=== PATIENT | male | born 1950 | race Caucasian/White ===

== ENCOUNTER 2017-08-23 02:28 | Emergency (ER) | payer MEDICARE ==
[~2017-08-23] VITALS: Ht 177.8 cm; Wt 88.5 kg
[2017-08-23] MEDS ORDERED: ATENOLOL50 MG PO (02:42)
[2017-08-23] MEDS ORDERED: AMLODIPINE BESYL5 MG PO (02:42)
== END 2017-08-23 03:36 | disposition left against medical advice (07) ==
LOC: ER 02:28
DX: K64.4 Residual hemorrhoidal skin tags (principal)

== ENCOUNTER 2017-11-08 13:26 | Day surgery (SDC) | payer MEDICARE, OTHER ==
[~2017-11-08] VITALS: Ht 177.8 cm; Wt 88.5 kg
[~2017-11-08 13:26] MED LIST: AMLODIPINE BESYL5 MG PO; ATENOLOL50 MG PO
[2017-11-08] MEDS ORDERED: ASPIRIN 81 MG CHEW TAB PO ONE ×2 (13:45→19:15)
[2017-11-08] MEDS ORDERED: KETOROLAC TROMETHAMINE 30 MG/ML VIAL IV STA (13:46)
[2017-11-08 13:47] LABS: BASOPHILS % 0.8 % (0.0-1.0); EOSINOPHILS # (AUTO) 0.3 (0.0-0.4); EOSINOPHILS % 6.4 % (0.0-6.0); HEMATOCRIT 45.1 % (38.2-49.6); HEMOGLOBIN 15.8 g/dL (14.0-18.0); LYMPHOCYTES # (AUTO) 1.5 (1.0-3.2); LYMPHOCYTES % 30.3 % (18.0-39.1); MEAN CORPUSCULAR VOLUME 88.4 fL (81-99); MONOCYTES # (AUTO) 0.4 (0.2-0.8); MONOCYTES % 8.9 % (4.4-11.3); NEUTROPHILS # (AUTO) 2.6 (2.1-6.9); NEUTROPHILS % 53.4 % (38.7-80.0); PLATELET COUNT 184 x10e3/uL (140-360)
[2017-11-08 13:56] LABS: INR 1.04; PROTHROMBIN TIME 12.8 seconds (11.9-14.5)
[2017-11-08 13:57] LABS: BILIRUBIN,URINE NEGATIVE (NEGATIVE); CLARITY,URINE CLEAR (CLEAR); COLOR,URINE YELLOW (YELLOW); KETONES,URINE NEGATIVE (NEGATIVE); LEUKOCYTE ESTERASE ,URINE NEGATIVE (NEGATIVE); NITRITE,URINE NEGATIVE (NEGATIVE); PARTIAL THROMBOPLASTIN TIME 27.8 seconds (23.8-35.5); PROTEIN,URINE DIPSTICK NEGATIVE (NEGATIVE); URINE UROBILINOGEN 0.2 mg/dL (0.2 - 1)
[2017-11-08 14:06] LABS: ALANINE AMINOTRANSFERASE 18 IU/L (0-55); ALBUMIN/GLOBULIN RATIO 1.1 (0.8-2.0); ALKALINE PHOSPHATASE 50 IU/L (40-150); ANION GAP 11.8 mmol/L (8-16); BLOOD UREA NITROGEN 10 mg/dL (7-26); BUN/CREATININE RATIO 9 (6-25); CALCIUM 9.7 mg/dL (8.4-10.2); CARBON DIOXIDE 27 mmol/L (22-29); CHLORIDE 106 mmol/L (98-107); CREATINE KINASE 154 IU/L (30-200); CREATININE, SERUM 1.17 mg/dL (0.72-1.25); EST GLOMERULAR FILTRATION RATE > 60 ML/MIN (60-); GLUCOSE 138 mg/dL (74-118); POTASSIUM 3.8 mmol/L (3.5-5.1); SODIUM 141 mmol/L (136-145)
[2017-11-08 14:07] LABS: EPITHELIAL CELLS,URINE RARE /LPF; WBC,URINE (MAN) 0-5 /HPF (0-5)
--- NOTE | 2017-11-08 15:37 | Diagnostic Imaging Report ---
PROCEDURE: A single AP view of the chest. COMPARISON: None. INDICATIONS: CHEST PAIN RIGHT TO LEFT SIDE FINDINGS: Lines/tubes: None. Lungs: The lungs are well inflated and grossly clear. There is no evidence of pneumonia or pulmonary edema. Pleura: There is no pleural effusion or pneumothorax. Heart and mediastinum: Mild prominence of the cardiac silhouette, which may be partly due to portable AP projection. Pulmonary vasculature is normal. Bones: No acute bony abnormality. IMPRESSION: 1. No acute cardiopulmonary abnormalities. David Gonzales M.D. Dictated by: David Gonzales M.D. on 11/08/2017 at 15:42 Electronically approved by: David Gonzales M.D. on 11/08/2017 at 15:42
[2017-11-08] MEDS ORDERED: NITROGLYCERIN 0.4 MG SUBL SL PRN (19:15)
[2017-11-09] MEDS ORDERED: TERAZOSIN HCL5 MG PO (00:39)
[2017-11-09] MEDS ORDERED: CRESTOR10 MG (00:39)
[2017-11-09] MEDS ORDERED: ONGLYZA2.5 MG (00:46)
[2017-11-09 02:21] LABS: CREATINE KINASE MB 33.7 ng/mL (0-5.0)
[2017-11-09] MEDS ORDERED: CLOPIDOGREL BISULFATE 75 MG TAB PO ONE (02:45)
[2017-11-09 05:09] LABS: CHOL/HDL RATIO 2.4 (3.9-4.7)
[2017-11-09] MEDS ORDERED: HEPARIN SOD (PORCINE) 5,000 UNIT/ML VIAL IV ONE (07:45)
[2017-11-09] MEDS ORDERED: HEPARIN 25,000U/0.45% NS 250ML 1,000 UNIT in SODIUM CHLORIDE 0.9% 250ML 0 ML IV SCH (07:45)
[2017-11-09 08:06] LABS: INR 1.11; PARTIAL THROMBOPLASTIN TIME 27.6 seconds (23.8-35.5); PROTHROMBIN TIME 13.5 seconds (11.9-14.5)
[2017-11-09] MEDS ORDERED: HEPARIN 25,000U/0.45% NS 250ML 250 ML ONE (08:23)
[2017-11-09 08:39] LABS: BASOPHILS % 0.7 % (0.0-1.0); EOSINOPHILS # (AUTO) 0.2 (0.0-0.4); HEMATOCRIT 43.2 % (38.2-49.6); HEMOGLOBIN 15.1 g/dL (14.0-18.0); LYMPHOCYTES # (AUTO) 1.1 (1.0-3.2); LYMPHOCYTES % 19.5 % (18.0-39.1); MEAN CORPUSCULAR HEMOGLOBIN 30.8 pg (28-32); MONOCYTES # (AUTO) 0.4 (0.2-0.8); MONOCYTES % 7.6 % (4.4-11.3); NEUTROPHILS # (AUTO) 3.8 (2.1-6.9); NEUTROPHILS % 67.8 % (38.7-80.0); PLATELET COUNT 180 x10e3/uL (140-360); RED BLOOD COUNT 4.91 x10e6/uL (4.3-5.7)
[2017-11-09 08:53] LABS: ALANINE AMINOTRANSFERASE 20 IU/L (0-55); ALBUMIN 3.6 g/dL (3.5-5.0); ALBUMIN/GLOBULIN RATIO 1.2 (0.8-2.0); ALKALINE PHOSPHATASE 41 IU/L (40-150); ANION GAP 13.8 mmol/L (8-16); BLOOD UREA NITROGEN 10 mg/dL (7-26); BUN/CREATININE RATIO 10 (6-25); CALCIUM 9.3 mg/dL (8.4-10.2); CARBON DIOXIDE 23 mmol/L (22-29); CHLORIDE 107 mmol/L (98-107); CREATININE, SERUM 1.04 mg/dL (0.72-1.25); EST GLOMERULAR FILTRATION RATE > 60 ML/MIN (60-); GLUCOSE 146 mg/dL (74-118); POTASSIUM 3.8 mmol/L (3.5-5.1); SODIUM 140 mmol/L (136-145)
[2017-11-09] MEDS ORDERED: CLOPIDOGREL BISULFATE 75 MG TAB PO SCH (09:00)
[2017-11-09] MEDS ORDERED: ASPIRIN 81 MG ENTERIC COATED PO SCH (09:00)
[2017-11-09] MEDS ORDERED: LIDOCAINE 5% PATCH TP SCH (09:00)
--- NOTE | 2017-11-09 09:30 | History and Physical ---
CHIEF COMPLAINT: Chest discomfort. HISTORY OF PRESENT ILLNESS: This 67-year-old white man presented to [facility] Emergency Room with sudden onset of retrosternal chest tightness. The patient states this chest discomfort was associated with numbness in his bilateral forearms as well as anxiety and diaphoresis. The patient denied any shortness of breath or nausea, though. In the emergency room, a 12-lead EKG did not reveal any acute ischemic changes, but it did reveal poor R-wave progression in the anterior leads. The patient's initial cardiac enzyme was normal, namely troponin I of 0.004. The subsequent troponin I's have steadily increased. The last troponin I at 7:50 this morning was 2.971. The patient states at this time he is chest pain-free. The emergency room did start intravenous heparin last night. The patient's complete blood count and comprehensive metabolic panel were unremarkable except he was found to have a BUN and creatinine of 10 and 1.17 respectively. The patient's LDL cholesterol in the emergency room was 51 mg per dL. REVIEW OF SYSTEMS GENERAL: Weight has been stable. No fever or chills, but he did have diaphoresis with the chest discomfort. HEENT: No headache. No visual changes. CARDIOVASCULAR: Chest pain as per HPI. GI: No nausea, vomiting, or constipation. : No UTI or BPH symptoms. NEUROMUSCULAR: The patient did complain of numbness and tingling in his bilateral upper extremities associated with chest discomfort. ALLERGIES: CODEINE. FAMILY HISTORY: No coronary artery disease in any family members. SOCIAL HISTORY: This man is and lives with his . He is retired. No tobacco or alcohol use. PAST MEDICAL HISTORY 1. Hypertensive heart disease. 2. Type-2 diabetes mellitus (recently diagnosed). 3. Hyperlipidemia. SURGICAL HISTORY: None. HOME MEDICATIONS 1. Amlodipine 5 mg daily. 2. Atenolol 100 mg daily. 3. Rosuvastatin 20 mg each bedtime. 4. Saxagliptin 2.5 mg daily. 5. Terazosin 5 mg daily. PHYSICAL EXAMINATION GENERAL: He is awake, alert and fully oriented, in no distress. Very pleasant on exam. He looks much younger than his stated age. VITAL SIGNS: Height is 5 feet 10 inches, weight 195 pounds. Blood pressure 140/80. Pulse 83. Respiratory rate is 18. Oxygen saturation is 95% on room air. Temperature is 98.0. INTEGUMENT: Warm and dry. No pallor, jaundice or diaphoresis. HEENT: Anicteric sclerae with moist mucous membranes. NECK: Supple. No evidence of jugular venous distention. CARDIOVASCULAR: Distant heart sounds. Regular rate and rhythm with an S4 gallop. LUNGS: No rales. No rhonchi or wheezing. ABDOMEN: Benign. Normal bowel sounds. EXTREMITIES: No edema or deformity. NEUROLOGIC: Intact. DIAGNOSES 1. Acute coronary syndrome. 2. Kjk-DG-gzarpfhw myocardial infarction. 3. Hyperlipidemia. 4. Hypertensive heart disease. PLAN 1. Follow troponin I levels. 2. Consult cardiology. 3. Continue intravenous heparin. 4. Patient most likely will undergo a left heart catheterization today. I spent 45 minutes in the care of this patient. Job#: [id number] LAZARO
[2017-11-09] MEDS ORDERED: ATENOLOL 50 MG TAB PO SCH (11:00)
[2017-11-09] MEDS ORDERED: AMLODIPINE BESYLATE 5 MG TAB PO SCH (11:00)
[2017-11-09 12:31] LABS: CREATINE KINASE MB 57.7 ng/mL (0-5.0)
[2017-11-09] MEDS ORDERED: DIPHENHYDRAMINE HCL INJ 50 MG/ML VIAL ONE (14:31)
[2017-11-09] MEDS ORDERED: FENTANYL CITRATE/PF 100MCG/2 ML INJ ONE (14:31)
[2017-11-09] MEDS ORDERED: MIDAZOLAM HCL 2 MG/2 ML VIAL ONE (14:31)
[2017-11-09] MEDS ORDERED: METHYLPREDNISOLONE SOD SUCC 125 MG/2ML VIAL ONE (14:31)
[2017-11-09] MEDS ORDERED: LIDOCAINE HCL 2% LOCAL 20 ML VIAL ONE (14:32)
[2017-11-09] MEDS ORDERED: IOPAMIDOL 370 MG/ML 200 ML INFUS..BTL INJ ONE (14:32)
[2017-11-09] MEDS ORDERED: HEPARIN SOD/SOD CHLORIDE 2,000 ML ONE (14:32)
[2017-11-09] MEDS ORDERED: SODIUM CHLORIDE 0.9% 1000ML 1,000 ML ONE (14:32)
[2017-11-09 16:10] VITALS: BP 121/83
[2017-11-09 16:25] VITALS: BP 119/80
[2017-11-09 16:40] VITALS: BP 115/77
--- NOTE | 2017-11-09 16:50 | Consultation ---
DATE OF CONSULTATION: November 09, 2017 CARDIOLOGY CONSULTATION REASON FOR CONSULTATION: Non-ST elevation myocardial infarction. HISTORY OF PRESENT ILLNESS: This is a 67-year-old man with a history of hypertension, hyperlipidemia and recent onset diabetes mellitus who presented to the emergency department with sudden onset chest pain. The patient reports chronic upper chest pain that is worse with certain movements and exertion over the last few months. Tuesday the patient was moving some shingles and plywood and developed substernal chest pressure associated with some diaphoresis, nausea and upper extremity numbness. Upon arrival to the emergency department, the patient was found to have normal electrocardiogram; however, no ST elevations were noted. The patient's initial troponin was negative, and then suddenly began to rise and was started on heparin infusion. The patient was taken to the excavation laborer where he was found to have multivessel coronary artery disease, and he was transported back to the intensive care unit for transfer for bypass surgery. He has no prior past cardiac history. He does not smoke cigarettes or use any illicit drugs. Currently, the patient is feeling well and denies any chest pain, shortness of breath, palpitations or syncopal symptoms. REVIEW OF SYSTEMS: A 12-point review of systems was conducted and is negative other than mentioned above in HPI. PAST MEDICAL HISTORY: Hypertension, recently diagnosed diabetes mellitus, hyperlipidemia. FAMILY HISTORY: No premature CAD or sudden cardiac . SOCIAL HISTORY: No illicit drug use, alcohol or tobacco use. ALLERGIES: CODEINE AND IODINE. MEDICATIONS: Please see medication reconciliation form. PAST SURGICAL HISTORY: None. PHYSICAL EXAMINATION VITAL SIGNS: Temperature 98, heart rate 80, respirations 16, blood pressure 127/82, oxygen saturation 96% on room air. GENERAL: He is a well-appearing, well-built male lying comfortably in bed. HEENT: Head is normocephalic and atraumatic. Eyes: Extraocular muscles intact. Conjunctivae are clear. NECK: No JVD. No bruits. CARDIOVASCULAR: Regular rate and rhythm. No murmurs. Normal S1 and S2. LUNGS: Clear to auscultation bilaterally with no wheezing and no rales. ABDOMEN: Soft, nontender and nondistended. Normoactive bowel sounds. EXTREMITIES: No cyanosis, clubbing or edema. Vascular: 2+ pulses. SKIN: Warm, dry and intact. NEUROLOGIC: No focal deficits noted. Cranial nerves grossly intact. PSYCHIATRIC: Normal mood and affect. LABORATORY DATA: All reviewed. Notable for white blood cell count of 5.5, hemoglobin 15.1, platelets 180,000, sodium 140, potassium 3.8, creatinine 1.04. Recent cardiac enzymes reveal a CK MB of 57.7, creatinine kinase is 591, troponin I is 3.826. LDL is 51. Chest x-ray showed no acute cardiopulmonary abnormalities. A 12-lead electrocardiogram shows normal sinus rhythm with poor R-wave progression. IMPRESSION AND PLAN 1. Non-ST elevation myocardial infarction. The patient presented with symptoms concerning for angina. He was found to have elevated cardiac enzymes. Coronary angiography today revealed significant multivessel coronary artery disease. The patient will be transferred for coronary artery bypass graft surgery. He will continue on heparin infusion in addition to aspirin, statin and beta blockers. A 2D echocardiogram has been ordered and I will review once completed. 2. Hypertension. Initiate home antihypertensive medications. 3. Hyperlipidemia. Continue statin medications. 4. Diabetes mellitus. Check hemoglobin A1c and treatment per primary team. Thank you for the consultation. Will follow along with you. Job#: [id number]
--- NOTE | 2017-11-09 16:52 | Operative Report ---
DATE OF PROCEDURE: November 09, 2017 PROCEDURES PERFORMED 1. Conscious sedation 30 minutes. 2. Selective coronary angiography x2. 3. Left heart catheterization. PREPROCEDURE DIAGNOSIS: Msi-PX-gsyeicoso myocardial infarction. POSTPROCEDURE DIAGNOSIS: Multivessel coronary artery disease. ESTIMATED BLOOD LOSS: 20 mL. SPECIMENS REMOVED: None. PROCEDURE DETAILS: After informed consent was obtained, the patient was brought to the cardiac catheterization laboratory in a fasting and nonsedated state. Bilateral groins were prepped and draped in the usual sterile fashion. Lidocaine 2% was infiltrated over the right anterior groin for local anesthesia. Using a micropuncture needle, the right common femoral artery was accessed using modified Seldinger technique and a 5-Ethiopian sheath was placed. Next, diagnostic coronary angiography was performed using a 5-Ethiopian JL-4 and 3DRC catheters. Next, left heart catheterization was performed using a modified angled pigtail catheter. Diagnostic imaging revealed significant multivessel coronary artery disease. The sheath was removed, and hemostasis was obtained via a Mynx device. The patient tolerated the procedure well with no immediate complications and transported back to his room in stable condition. PROCEDURAL FINDINGS 1. Left main coronary artery has a mild mid 20% stenosis. 2. The left anterior descending coronary artery is patent proximally and is 100% occluded after the takeoff of the 1st diagonal branch. Septal perforators provide collaterals to the right posterior descending coronary artery. 3. Left circumflex coronary artery provides 2 obtuse marginal vessels. Left circumflex has an 80% to 90% stenosis just after the takeoff of the 1st obtuse marginal. 4. The right coronary artery has a long diffusely 70% stenotic lesion throughout its mid to distal course. The distal RCA extending into the right posterior descending coronary artery has a 90% to 95% stenoses. 5. The left ventricular end-diastolic pressure is 18 mmHg with no aortic valve gradient present upon pullback. IMPRESSION AND PLAN: This is a 67-year-old man who presented with a [id number]-TA-fpdmmlvhr myocardial infarction and was found to have multivessel coronary artery disease. The patient will be transferred for aortocoronary bypass surgery. Job#: [id number] EV
[2017-11-09] MEDS ORDERED: SIMVASTATIN 20 MG TAB PO SCH (21:00)
[2017-11-10] MEDS ORDERED: SIMVASTATIN 40 MG TAB PO SCH (09:00)
[2017-11-10] MEDS ORDERED: TERAZOSIN HCL 5 MG CAP PO SCH (09:00)
--- NOTE | 2017-11-16 11:03 | Discharge Summary ---
NO DICTATION, LENGTH 3 SECONDS. ROB JAMES MD Job#: [id number]
--- NOTE | 2017-11-16 11:33 | Discharge Summary ---
ADMIT DIAGNOSES 1. Acute coronary syndrome. 2. Bzh-XN-gwhetswr myocardial infarction. 3. Hyperlipidemia. 4. Hypertensive heart disease. DISCHARGE DIAGNOSES 1. Status post left heart catheterization. 2. Multivessel coronary artery disease. 3. Non-ST elevated myocardial infarction. 4. Hyperlipidemia. 5. Hypertensive heart disease. 6. Acute systolic/diastolic congestive heart failure. HOSPITAL COURSE: This is a 67-year-old white man who was initially admitted to [facility] with diagnosis of acute coronary syndrome, namely non-ST elevated myocardial infarction. Patient's troponin-I did get as high as 3.826 during this hospitalization. Patient was seen by redye hand, Dr. Jaylen Carroll, who performed left heart catheterization. Patient was found to have multivessel coronary artery disease and thus, he was referred to [facility] for tentative coronary artery bypass grafting. During this hospital stay, the patient underwent a 2D echocardiogram which revealed left ventricular ejection fraction of 45-50% with impaired diastolic relaxation. Thus, the patient was diagnosed with systolic/diastolic congestive heart failure. Patient's condition on discharge was stable with a fair prognosis. DISCHARGE MEDICATIONS 1. Atenolol 100 mg daily. 2. Amlodipine 5 mg daily. 3. Aspirin 81 mg daily. 4. Simvastatin 10 mg at bedtime. 5. Terazosin 5 mg daily. 6. Intravenous heparin. FOLLOWUP INSTRUCTIONS: As previously stated, patient was transferred to [facility] for tentative coronary artery bypass grafting. ROB JAMES MD Job#: [id number] AKU cc:EMIR CARROLL DO
--- OUTSIDE RECORDS SUMMARY | 2018-01-05 00:02 | XMS REPORT | Continuity of Care Document ---
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 No 08/23/17 2:26am If yes, is advance directive on file with [facility]? No 08/23/17 2:26am If not on file with [facility] will patient provide a copy? No 08/23/17 2:26am Do you have a Directive to Physician? No 08/23/17 2:26am Do you have a Medical Power of Stone Cleaner? No 08/23/17 2:26am Do you have an out of hospital Do Not Resuscitate Order? No 08/23/17 2:26am Do you have any special needs we should be aware of? No 08/23/17 2:26am Do you have a support person here with you today? Yes 08/23/17 2:26am Did patient receive Notice of Privacy Practices? Yes 08/23/17 2:26am Did patient receive patient rights and responsibilities? Yes 08/23/17 2:26am Problems No problem information available. Medications Current Home Medications Medication Dose Units Route Directions Days Qty Instructions Start Date Amlodipine Besylate 5 Mg Tablet 5 Mg Oral Daily 30 Tab Atenolol 50 Mg Tablet 100 Mg Oral Daily Social History No social history information available. Hospital Discharge Instructions No hospital discharge instruction information available. Plan of Care Discharge Date 08/23/17 3:36am Disposition LEFT AFTER MEDICAL SCREENING Condition at Discharge Stable Forms Provided Work/School Excuse Prescriptions See Medication Section Functional Status No functional status information available. Allergies, Adverse Reactions, Alerts Allergen Type Severity Reaction Status Last Updated Codeine Allergy Unknown Active 08/23/17 Immunizations No immunization information available. Vital Signs Acute Vital Signs Vital Response Date/Time Height 5 ft 10 in 08/23/2017 2:35am Weight 195 lb 08/23/2017 2:35am Body Mass Index 28.0 kg/m^2 08/23/2017 2:35am Results No relevant diagnostic test, laboratory data and/or discharge summary information available. Procedures No procedure information available. Encounters Encounter Location Arrival/Admit Date Discharge/Depart Date Attending Provider Departed Emergency Room [facility] 08/23/17 2:28am 3:36am UVALDO GIPSON MD
--- OUTSIDE RECORDS SUMMARY | 2018-01-05 00:14 | XMS REPORT ---
Author Author [facility] Address Unknown Phone Unavailable Care Team Providers Care Brim Presser Name Role Phone JOHANA GALVAN Unavailable Unavailable RICKI BLAKES Unavailable Unavailable Payers Payer Name Policy Type Policy Number Effective Date Expiration Date Problems This patient has no known problems. Allergies, Adverse Reactions, Alerts This patient has no known allergies or adverse reactions. Medications This patient has no known medications. Results Test Description Test Time Test Comments Text Results Atomic Results Result Comments POCT-GLUCOSE METER 2017-11-18 12:33:00 POC-GLUCOSE METER (BEAKER) (test kbql=0746) 194 mg/dL 70-110 TESTED AT [place] [id number] [facility] [address] POCT-GLUCOSE [id number] 08:32:00* Test Item Value Reference Range Comments POC-GLUCOSE METER (BEAKER) (test ttpm=2902) 118 mg/dL 70-110 TESTED AT [address] [address] CALCIUM, [id number] 06:21:00* Test Item Value Reference Range Comments CALCIUM IONIZED (BEAKER) (test nxmh=946) 0.93 mmol/L 1.12-1.27 PH, BLOOD (BEAKER) (test pkzn=4042) 7.58 [id number] 05:22:00* Test Item Value Reference Range Comments PHOSPHORUS (BEAKER) (test fdbp=593) 3.2 mg/dL 2.3-4.7 [id number] 05:22:00* Test Item Value Reference Range Comments MAGNESIUM (BEAKER) (test nvgy=656) 2.0 mg/dL 1.6-2.6 BASIC METABOLIC [id number] 05:22:00* Test Item Value Reference Range Comments SODIUM (BEAKER) (test wpyt=457) 139 meq/L 136-145 POTASSIUM (BEAKER) (test ipyh=988) 3.6 meq/L 3.5-5.1 CHLORIDE (BEAKER) (test sxrz=547) 106 meq/L 98-107 CO2 (BEAKER) (test jspv=409) 26 meq/L 22-29 BLOOD UREA NITROGEN (BEAKER) (test qwhx=290) 10 mg/dL 7-21 CREATININE (BEAKER) (test kwxj=641) 0.96 mg/dL 0.57-1.25 GLUCOSE RANDOM (BEAKER) (test wgsl=953) 130 mg/dL 70-105 CALCIUM (BEAKER) (test wzkt=159) 9.0 mg/dL 8.4-10.2 EGFR (BEAKER) (test lcvf=7875) 78 mL/min/1.73 sq m ESTIMATED GFR IS NOT ACCURATE CREATININE CLEARANCE IN PREDICTING GLOMERULAR FILTRATION RATE. ESTIMATED GFR IS NOT APPLICABLE FOR DIALYSIS PATIENTS. CBC (HEMOGRAM ONLY)2017-11-18 05:07:00* Test Item Value Reference Range Comments WHITE BLOOD CELL COUNT (BEAKER) (test vnpq=251) 6.9 K/ L 3.5-10.5 RED BLOOD CELL COUNT (BEAKER) (test bdip=416) 3.78 M/ L 4.63-6.08 HEMOGLOBIN (BEAKER) (test ccin=475) 11.4 GM/DL 13.7-17.5 HEMATOCRIT (BEAKER) (test fgpa=648) 34.3 % 40.1-51.0 MEAN CORPUSCULAR VOLUME (BEAKER) (test csrx=141) 90.7 fL 79.0-92.2 MEAN CORPUSCULAR HEMOGLOBIN (BEAKER) (test tyto=281) 30.2 pg 25.7-32.2 MEAN CORPUSCULAR HEMOGLOBIN CONC (BEAKER) (test wpif=313) 33.2 GM/DL 32.3- 36.5 RED CELL DISTRIBUTION WIDTH (BEAKER) (test cwym=830) 12.4 % 11.6-14.4 PLATELET COUNT (BEAKER) (test qiuf=914) 188 K/CU MM 150-450 MEAN PLATELET VOLUME (BEAKER) (test ajic=981) 11.1 fL 9.4-12.4 NUCLEATED RED BLOOD CELLS (BEAKER) (test qdtc=425) 0 /100 WBC 0-0 POCT-GLUCOSE [id number] 21:18:00* Test Item Value Reference Range Comments POC-GLUCOSE METER (BEAKER) (test tefv=6601) 236 mg/dL 70-110 TESTED AT [address] [address] POCT-GLUCOSE [id number] 18:03:00* Test Item Value Reference Range Comments POC-GLUCOSE METER (BEAKER) (test sijf=9388) 186 mg/dL 70-110 TESTED AT [address] [address] POCT-GLUCOSE [id number] 12:35:00* Test Item Value Reference Range Comments POC-GLUCOSE METER (BEAKER) (test irsf=6229) 171 mg/dL 70-110 TESTED AT [address] [address] POCT-GLUCOSE [id number] 08:50:00* Test Item Value Reference Range Comments POC-GLUCOSE METER (BEAKER) (test qixr=9919) 113 mg/dL 70-110 TESTED AT [address] [address] CALCIUM, [id number] 06:21:00* Test Item Value Reference Range Comments CALCIUM IONIZED (BEAKER) (test gjzy=003) 1.07 mmol/L 1.12-1.27 PH, BLOOD (BEAKER) (test qoap=1377) 7.51 [id number] 05:02:00* Test Item Value Reference Range Comments PHOSPHORUS (BEAKER) (test bwsx=961) 2.8 mg/dL 2.3-4.7 [id number] 05:02:00* Test Item Value Reference Range Comments MAGNESIUM (BEAKER) (test emug=593) 2.1 mg/dL 1.6-2.6 BASIC METABOLIC [id number] 05:02:00* Test Item Value Reference Range Comments SODIUM (BEAKER) (test seae=870) 138 meq/L 136-145 POTASSIUM (BEAKER) (test pahm=663) 3.5 meq/L 3.5-5.1 CHLORIDE (BEAKER) (test zrds=992) 103 meq/L 98-107 CO2 (BEAKER) (test saac=943) 27 meq/L 22-29 BLOOD UREA NITROGEN (BEAKER) (test ntsv=086) 14 mg/dL 7-21 CREATININE (BEAKER) (test oxge=300) 1.00 mg/dL 0.57-1.25 GLUCOSE RANDOM (BEAKER) (test jphc=364) 141 mg/dL 70-105 CALCIUM (BEAKER) (test dgwc=225) 8.7 mg/dL 8.4-10.2 EGFR (BEAKER) (test xesl=0855) 74 mL/min/1.73 sq m ESTIMATED GFR IS NOT ACCURATE CREATININE CLEARANCE IN PREDICTING GLOMERULAR FILTRATION RATE. ESTIMATED GFR IS NOT APPLICABLE FOR DIALYSIS PATIENTS. CBC (HEMOGRAM ONLY)2017-11-17 04:36:00* Test Item Value Reference Range Comments WHITE BLOOD CELL COUNT (BEAKER) (test osth=468) 6.0 K/ L 3.5-10.5 RED BLOOD CELL COUNT (BEAKER) (test xzuc=015) 3.73 M/ L 4.63-6.08 HEMOGLOBIN (BEAKER) (test kuiy=750) 11.4 GM/DL 13.7-17.5 HEMATOCRIT (BEAKER) (test uehc=746) 33.8 % 40.1-51.0 MEAN CORPUSCULAR VOLUME (BEAKER) (test dapn=620) 90.6 fL 79.0-92.2 MEAN CORPUSCULAR HEMOGLOBIN (BEAKER) (test hali=234) 30.6 pg 25.7-32.2 MEAN CORPUSCULAR HEMOGLOBIN CONC (BEAKER) (test pdzc=256) 33.7 GM/DL 32.3- 36.5 RED CELL DISTRIBUTION WIDTH (BEAKER) (test toyx=073) 12.2 % 11.6-14.4 PLATELET COUNT (BEAKER) (test yttk=552) 167 K/CU MM 150-450 MEAN PLATELET VOLUME (BEAKER) (test tfko=531) 11.1 fL 9.4-12.4 NUCLEATED RED BLOOD CELLS (BEAKER) (test etln=585) 0 /100 WBC 0-0 CBC W/PLT COUNT & AUTO [id number] 04:36:00* Test Item Value Reference Range Comments WHITE BLOOD CELL COUNT (BEAKER) (test mgsp=558) 6.0 K/ L 3.5-10.5 RED BLOOD CELL COUNT (BEAKER) (test pspp=040) 3.73 M/ L 4.63-6.08 HEMOGLOBIN (BEAKER) (test pkmj=395) 11.4 GM/DL 13.7-17.5 HEMATOCRIT (BEAKER) (test hnsl=871) 33.8 % 40.1-51.0 MEAN CORPUSCULAR VOLUME (BEAKER) (test kpie=349) 90.6 fL 79.0-92.2 MEAN CORPUSCULAR HEMOGLOBIN (BEAKER) (test zzch=019) 30.6 pg 25.7-32.2 MEAN CORPUSCULAR HEMOGLOBIN CONC (BEAKER) (test jqsg=363) 33.7 GM/DL 32.3- 36.5 RED CELL DISTRIBUTION WIDTH (BEAKER) (test qidd=553) 12.2 % 11.6-14.4 PLATELET COUNT (BEAKER) (test ruqb=949) 167 K/CU MM 150-450 MEAN PLATELET VOLUME (BEAKER) (test fsvq=723) 11.1 fL 9.4-12.4 NUCLEATED RED BLOOD CELLS (BEAKER) (test sdng=770) 0 /100 WBC 0-0 NEUTROPHILS RELATIVE PERCENT (BEAKER) (test rvxa=481) 68 % LYMPHOCYTES RELATIVE PERCENT (BEAKER) (test sxuj=414) 15 % MONOCYTES RELATIVE PERCENT (BEAKER) (test gbkz=372) 11 % EOSINOPHILS RELATIVE PERCENT (BEAKER) (test rauj=439) 4 % BASOPHILS RELATIVE PERCENT (BEAKER) (test xwrv=550) 1 % NEUTROPHILS ABSOLUTE COUNT (BEAKER) (test mhgg=396) 4.12 K/ L 1.78-5.38 LYMPHOCYTES ABSOLUTE COUNT (BEAKER) (test exho=075) 0.93 K/ L 1.32-3.57 MONOCYTES ABSOLUTE COUNT (BEAKER) (test bnlu=943) 0.69 K/ L 0.30-0.82 EOSINOPHILS ABSOLUTE COUNT (BEAKER) (test abyz=508) 0.22 K/ L 0.04-0.54 BASOPHILS ABSOLUTE COUNT (BEAKER) (test gabx=661) 0.04 K/ L 0.01-0.08 IMMATURE GRANULOCYTES-RELATIVE PERCENT (BEAKER) (test jqgv=8683) 1 % 0-1 POCT-GLUCOSE [id number] 21:18:00* Test Item Value Reference Range Comments POC-GLUCOSE METER (BEAKER) (test opgo=1422) 182 mg/dL 70-110 TESTED AT [facility] [address] [facility] [address] POCT-GLUCOSE [id number] 17:26:00* Test Item Value Reference Range Comments POC-GLUCOSE METER (BEAKER) (test njqg=9518) 175 mg/dL 70-110 TESTED AT [place] [id number] [facility] [address] POCT-GLUCOSE [id number] 11:16:00* Test Item Value Reference Range Comments POC-GLUCOSE METER (BEAKER) (test yrga=6982) 101 mg/dL 70-110 TESTED AT [address] [address] POCT-GLUCOSE [id number] 08:09:00* Test Item Value Reference Range Comments POC-GLUCOSE METER (BEAKER) (test xwdw=2933) 84 mg/dL 70-110 TESTED AT [place] [id number] [facility] [address] CALCIUM, [id number] 07:17:00* Test Item Value Reference Range Comments CALCIUM IONIZED (BEAKER) (test zqzb=533) 0.94 mmol/L 1.12-1.27 PH, BLOOD (BEAKER) (test bsxv=6214) 7.47 [id number] 04:46:00* Test Item Value Reference Range Comments PHOSPHORUS (BEAKER) (test raks=881) 2.8 mg/dL 2.3-4.7 [id number] 04:46:00* Test Item Value Reference Range Comments MAGNESIUM (BEAKER) (test paoj=168) 2.2 mg/dL 1.6-2.6 BASIC METABOLIC [id number] 04:46:00* Test Item Value Reference Range Comments SODIUM (BEAKER) (test lxlm=714) 137 meq/L 136-145 POTASSIUM (BEAKER) (test zzcd=324) 3.6 meq/L 3.5-5.1 CHLORIDE (BEAKER) (test seus=405) 103 meq/L 98-107 CO2 (BEAKER) (test hscd=288) 28 meq/L 22-29 BLOOD UREA NITROGEN (BEAKER) (test iuze=559) 14 mg/dL 7-21 CREATININE (BEAKER) (test thpy=533) 0.87 mg/dL 0.57-1.25 GLUCOSE RANDOM (BEAKER) (test yfoi=637) 88 mg/dL 70-105 CALCIUM (BEAKER) (test ajno=165) 8.4 mg/dL 8.4-10.2 EGFR (BEAKER) (test tadt=9693) 87 mL/min/1.73 sq m ESTIMATED GFR IS NOT ACCURATE CREATININE CLEARANCE IN PREDICTING GLOMERULAR FILTRATION RATE. ESTIMATED GFR IS NOT APPLICABLE FOR DIALYSIS PATIENTS. CBC W/PLT COUNT & AUTO [id number] 04:34:00* Test Item Value Reference Range Comments WHITE BLOOD CELL COUNT (BEAKER) (test batu=535) 5.4 K/ L 3.5-10.5 RED BLOOD CELL COUNT (BEAKER) (test unss=785) 3.71 M/ L 4.63-6.08 HEMOGLOBIN (BEAKER) (test rgwf=220) 11.3 GM/DL 13.7-17.5 HEMATOCRIT (BEAKER) (test kjnj=632) 34.4 % 40.1-51.0 MEAN CORPUSCULAR VOLUME (BEAKER) (test tsiv=937) 92.7 fL 79.0-92.2 MEAN CORPUSCULAR HEMOGLOBIN (BEAKER) (test dlil=511) 30.5 pg 25.7-32.2 MEAN CORPUSCULAR HEMOGLOBIN CONC (BEAKER) (test zafq=539) 32.8 GM/DL 32.3- 36.5 RED CELL DISTRIBUTION WIDTH (BEAKER) (test xgfr=214) 12.3 % 11.6-14.4 PLATELET COUNT (BEAKER) (test nuch=696) 141 K/CU MM 150-450 MEAN PLATELET VOLUME (BEAKER) (test mrlp=910) 11.5 fL 9.4-12.4 NUCLEATED RED BLOOD CELLS (BEAKER) (test kpot=593) 0 /100 WBC 0-0 NEUTROPHILS RELATIVE PERCENT (BEAKER) (test zhcc=428) 64 % LYMPHOCYTES RELATIVE PERCENT (BEAKER) (test xdun=702) 18 % MONOCYTES RELATIVE PERCENT (BEAKER) (test htfe=626) 12 % EOSINOPHILS RELATIVE PERCENT (BEAKER) (test xptd=748) 5 % BASOPHILS RELATIVE PERCENT (BEAKER) (test ollq=765) 0 % NEUTROPHILS ABSOLUTE COUNT (BEAKER) (test agxm=461) 3.48 K/ L 1.78-5.38 LYMPHOCYTES ABSOLUTE COUNT (BEAKER) (test rgmt=900) 0.95 K/ L 1.32-3.57 MONOCYTES ABSOLUTE COUNT (BEAKER) (test sory=396) 0.67 K/ L 0.30-0.82 EOSINOPHILS ABSOLUTE COUNT (BEAKER) (test ddhp=922) 0.25 K/ L 0.04-0.54 BASOPHILS ABSOLUTE COUNT (BEAKER) (test rmvy=859) 0.02 K/ L 0.01-0.08 IMMATURE GRANULOCYTES-RELATIVE PERCENT (BEAKER) (test kbgq=7444) 1 % 0-1 CBC (HEMOGRAM ONLY)2017-11-16 04:33:00* Test Item Value Reference Range Comments WHITE BLOOD CELL COUNT (BEAKER) (test shde=887) 5.4 K/ L 3.5-10.5 RED BLOOD CELL COUNT (BEAKER) (test cxsw=722) 3.71 M/ L 4.63-6.08 HEMOGLOBIN (BEAKER) (test fkwz=521) 11.3 GM/DL 13.7-17.5 HEMATOCRIT (BEAKER) (test arux=289) 34.4 % 40.1-51.0 MEAN CORPUSCULAR VOLUME (BEAKER) (test rfok=825) 92.7 fL 79.0-92.2 MEAN CORPUSCULAR HEMOGLOBIN (BEAKER) (test aomw=236) 30.5 pg 25.7-32.2 MEAN CORPUSCULAR HEMOGLOBIN CONC (BEAKER) (test acfk=682) 32.8 GM/DL 32.3- 36.5 RED CELL DISTRIBUTION WIDTH (BEAKER) (test rmyw=440) 12.3 % 11.6-14.4 PLATELET COUNT (BEAKER) (test taav=092) 141 K/CU MM 150-450 MEAN PLATELET VOLUME (BEAKER) (test glqa=845) 11.5 fL 9.4-12.4 NUCLEATED RED BLOOD CELLS (BEAKER) (test akaz=713) 0 /100 WBC 0-0 POCT-GLUCOSE [id number] 21:19:00* Test Item Value Reference Range Comments POC-GLUCOSE METER (BEAKER) (test rpeg=7781) 173 mg/dL 70-110 TESTED AT [facility] [address] [facility] [address] POCT-GLUCOSE [id number] 18:05:00* Test Item Value Reference Range Comments POC-GLUCOSE METER (BEAKER) (test qhro=6233) 102 mg/dL 70-110 TESTED AT [facility] [address] [facility] [address] POCT-GLUCOSE [id number] 12:39:00* Test Item Value Reference Range Comments POC-GLUCOSE METER (BEAKER) (test gaah=8472) 171 mg/dL 70-110 TESTED AT [facility] [address] [facility] [address] RAD, CHEST, 1 VIEW, NON [id number] 08:05:00Reason for exam:->ptxShould this be performed at the bedside?->YesFINAL REPORT Chest one view INDICATION: Pneumothorax COMPARISON: 11/14/2017 IMPRESSION: Right jugular line and sheath been have removed. Median sternotomy changes are noted. Previously seen trace left apical pneumothorax is not visible on this exam. The enlarged cardiomediastinal silhouette is stable in size. Pulmonary edema appears regressed. Stable left mid and lower lung and right basilar opacities may reflect atelectasis. Pneumonitis should be excluded clinically. Chronic right clavicular fracture is noted. Signed: Rajiv Santoslaw[facility] Verified Date/Time: 11/15/2017 08:05:47 Reading Location: [facility] Radiology Reading Room -GLUCOSE [id number] 07:47:00* Test Item Value Reference Range Comments POC-GLUCOSE METER (BEAKER) (test ttdm=7607) 88 mg/dL 70-110 TESTED AT [facility] [address] [facility] [address] CALCIUM, [id number] 07:12:00* Test Item Value Reference Range Comments CALCIUM IONIZED (BEAKER) (test jcsg=134) 1.00 mmol/L 1.12-1.27 PH, BLOOD (BEAKER) (test szwy=6085) 7.47 [id number] 05:03:00* Test Item Value Reference Range Comments PHOSPHORUS (BEAKER) (test vnae=272) 2.3 mg/dL 2.3-4.7 BASIC METABOLIC [id number] 05:03:00* Test Item Value Reference Range Comments SODIUM (BEAKER) (test bojd=030) 137 meq/L 136-145 POTASSIUM (BEAKER) (test zhig=112) 3.4 meq/L 3.5-5.1 CHLORIDE (BEAKER) (test ubai=712) 104 meq/L 98-107 CO2 (BEAKER) (test teec=469) 29 meq/L 22-29 BLOOD UREA NITROGEN (BEAKER) (test uxqa=751) 18 mg/dL 7-21 CREATININE (BEAKER) (test xipi=341) 0.84 mg/dL 0.57-1.25 GLUCOSE RANDOM (BEAKER) (test cshn=126) 100 mg/dL 70-105 CALCIUM (BEAKER) (test caac=629) 8.2 mg/dL 8.4-10.2 EGFR (BEAKER) (test kola=8076) 91 mL/min/1.73 sq m ESTIMATED GFR IS NOT ACCURATE CREATININE CLEARANCE IN PREDICTING GLOMERULAR FILTRATION RATE. ESTIMATED GFR IS NOT APPLICABLE FOR DIALYSIS PATIENTS. CBC (HEMOGRAM ONLY)2017-11-15 04:50:00* Test Item Value Reference Range Comments WHITE BLOOD CELL COUNT (BEAKER) (test owwu=823) 6.1 K/ L 3.5-10.5 RED BLOOD CELL COUNT (BEAKER) (test fanm=023) 3.46 M/ L 4.63-6.08 HEMOGLOBIN (BEAKER) (test xfty=950) 10.5 GM/DL 13.7-17.5 HEMATOCRIT (BEAKER) (test fueu=012) 31.8 % 40.1-51.0 MEAN CORPUSCULAR VOLUME (BEAKER) (test hkio=877) 91.9 fL 79.0-92.2 MEAN CORPUSCULAR HEMOGLOBIN (BEAKER) (test fcyd=292) 30.3 pg 25.7-32.2 MEAN CORPUSCULAR HEMOGLOBIN CONC (BEAKER) (test kfhu=379) 33.0 GM/DL 32.3- 36.5 RED CELL DISTRIBUTION WIDTH (BEAKER) (test ceop=516) 12.0 % 11.6-14.4 PLATELET COUNT (BEAKER) (test gqrp=724) 120 K/CU MM 150-450 MEAN PLATELET VOLUME (BEAKER) (test knsb=425) 11.3 fL 9.4-12.4 NUCLEATED RED BLOOD CELLS (BEAKER) (test srjg=700) 0 /100 WBC 0-0 POCT-GLUCOSE [id number] 21:23:00* Test Item Value Reference Range Comments POC-GLUCOSE METER (BEAKER) (test phpl=8492) 178 mg/dL 70-110 TESTED AT [facility] [address] [facility] [address] POCT-GLUCOSE [id number] 16:53:00* Test Item Value Reference Range Comments POC-GLUCOSE METER (BEAKER) (test ctkr=2452) 137 mg/dL 70-110 TESTED AT [place] [id number] [facility] [address] RAD, CHEST, 1 VIEW, NON [id number] 12:11:00Reason for exam:->Chest Tube RemovalShould this be performed at the bedside?->YesFINAL REPORT Chest one view INDICATION: Chest tube removal COMPARISON: 11/14/2017 IMPRESSION: Chest tubes have been removed. Median sternotomy changes and a right jugular line and sheath are again seen. Trace residual left apical pneumothorax is stable. The enlarged cardiomediastinal silhouette is stable in size. Pulmonary edema is similar in appearance. Stable left mid and lower lung and basilar airspace opacities, atelectasis versus pneumonitis. Chronic right clavicular fracture is noted. Signed: Rajiv Santos Verified Date/Time: 11/14/2017 12:11:27 Reading Location: [facility] Radiology Reading Room Electronically signed by: RAJIV SANTOS M.D. on 2017 12:11 PM POCT-GLUCOSE [id number] 12:06:00* Test Item Value Reference Range Comments POC-GLUCOSE METER (BEAKER) (test zacl=1249) 166 mg/dL 70-110 TESTED AT [facility] [address] [facility] [address] POCT-GLUCOSE [id number] 08:45:00* Test Item Value Reference Range Comments POC-GLUCOSE METER (BEAKER) (test jsgz=4280) 133 mg/dL 70-110 TESTED AT [facility] [address] [facility] [address] RAD, CHEST, 1 VIEW, NON [id number] 06:26:00Reason for exam:->ptxShould this be performed at the bedside?->YesFINAL REPORT RAD, CHEST , 1 VIEW, NON DEPT INDICATION: ptx COMPARISON: Prior day's exam FINDINGS: Portable frontal view of the chest. IMPRESSION: Support Lines: Stable. Lungs and pleura: Unchanged airspace and interstitial opacities. Trace residual left apical pneumothorax.Heart and mediastinum: Stable contours. Stable surgical changes.Additional findings: None. Signed: JR Rodrigues Robert MDReport Verified Date/Time: 11/14/2017 06:26:28 Reading Location: [facility] C013Y CT Body Reading Room [id number] 04:51:00* Test Item Value Reference Range Comments MAGNESIUM (BEAKER) (test dmup=494) 2.1 mg/dL 1.6-2.6 BASIC METABOLIC [id number] 04:51:00* Test Item Value Reference Range Comments SODIUM (BEAKER) (test oojr=881) 140 meq/L 136-145 POTASSIUM (BEAKER) (test tgeu=516) 3.3 meq/L 3.5-5.1 CHLORIDE (BEAKER) (test lsll=194) 103 meq/L 98-107 CO2 (BEAKER) (test zlcl=320) 32 meq/L 22-29 BLOOD UREA NITROGEN (BEAKER) (test vrnj=226) 22 mg/dL 7-21 CREATININE (BEAKER) (test ijaw=806) 0.96 mg/dL 0.57-1.25 GLUCOSE RANDOM (BEAKER) (test dfld=280) 134 mg/dL 70-105 CALCIUM (BEAKER) (test obhf=332) 8.2 mg/dL 8.4-10.2 EGFR (BEAKER) (test qvex=4672) 78 mL/min/1.73 sq m ESTIMATED GFR IS NOT ACCURATE CREATININE CLEARANCE IN PREDICTING GLOMERULAR FILTRATION RATE. ESTIMATED GFR IS NOT APPLICABLE FOR DIALYSIS PATIENTS. CBC (HEMOGRAM ONLY)2017-11-14 04:33:00* Test Item Value Reference Range Comments WHITE BLOOD CELL COUNT (BEAKER) (test eoew=383) 7.3 K/ L 3.5-10.5 RED BLOOD CELL COUNT (BEAKER) (test cfqn=192) 3.25 M/ L 4.63-6.08 HEMOGLOBIN (BEAKER) (test vdxn=968) 9.8 GM/DL 13.7-17.5 HEMATOCRIT (BEAKER) (test urut=747) 30.3 % 40.1-51.0 MEAN CORPUSCULAR VOLUME (BEAKER) (test nqfj=033) 93.2 fL 79.0-92.2 MEAN CORPUSCULAR HEMOGLOBIN (BEAKER) (test jhfh=505) 30.2 pg 25.7-32.2 MEAN CORPUSCULAR HEMOGLOBIN CONC (BEAKER) (test wvxi=402) 32.3 GM/DL 32.3- 36.5 RED CELL DISTRIBUTION WIDTH (BEAKER) (test fksx=369) 12.2 % 11.6-14.4 PLATELET COUNT (BEAKER) (test phnf=595) 113 K/CU MM 150-450 MEAN PLATELET VOLUME (BEAKER) (test dpzn=641) 11.5 fL 9.4-12.4 NUCLEATED RED BLOOD CELLS (BEAKER) (test ncko=599) 0 /100 WBC 0-0 POCT-GLUCOSE [id number] 21:33:00* Test Item Value Reference Range Comments POC-GLUCOSE METER (BEAKER) (test ltkf=0636) 177 mg/dL 70-110 TESTED AT [address] [address] POCT-GLUCOSE [id number] 17:38:00* Test Item Value Reference Range Comments POC-GLUCOSE METER (BEAKER) (test byku=5980) 127 mg/dL 70-110 TESTED AT [address] [address] POCT-GLUCOSE [id number] 14:42:00* Test Item Value Reference Range Comments POC-GLUCOSE METER (BEAKER) (test afgn=5645) 131 mg/dL 70-110 TESTED AT [address] [address] POCT-GLUCOSE [id number] 14:42:00* Test Item Value Reference Range Comments POC-GLUCOSE METER (BEAKER) (test fckg=9701) 134 mg/dL 70-110 TESTED AT [address] [address] [id number] 13:00:00* Test Item Value Reference Range Comments POTASSIUM (BEAKER) (test egmt=043) 4.0 meq/L 3.5-5.1 Check Serum Potassium level 2 hours after oral potassium replacement completed or 30 min after intravenous potassium replacement.POCT-GLUCOSE [id number] 09:43:00* Test Item Value Reference Range Comments POC-GLUCOSE METER (BEAKER) (test fxbp=4319) 138 mg/dL 70-110 TESTED AT [facility] [address] [facility] [address] POCT-GLUCOSE [id number] 09:43:00* Test Item Value Reference Range Comments POC-GLUCOSE METER (BEAKER) (test fmpe=7593) 134 mg/dL 70-110 TESTED AT [address] [address] POCT-GLUCOSE [id number] 09:43:00* Test Item Value Reference Range Comments POC-GLUCOSE METER (BEAKER) (test ojzh=6079) 161 mg/dL 70-110 TESTED AT [address] [address] POCT-GLUCOSE [id number] 09:43:00* Test Item Value Reference Range Comments POC-GLUCOSE METER (BEAKER) (test anxb=4078) 134 mg/dL 70-110 TESTED AT [address] [address] [id number] 08:59:00* Test Item Value Reference Range Comments POTASSIUM (BEAKER) (test pypa=671) 3.5 meq/L 3.5-5.1 Check Serum Potassium level 2 hours after oral potassium replacement completed or 30 min after intravenous potassium replacement.[id number] 08:59:00* Test Item Value Reference Range Comments MAGNESIUM (BEAKER) (test xqjn=287) 2.4 mg/dL 1.6-2.6 Check Serum Potassium level 2 hours after oral potassium replacement completed or 30 min after intravenous potassium replacement.RAD, CHEST, 1 VIEW, NON [id number] 06:39:00Reason for exam:->pl effusionShould this be performed at the bedside?->YesFINAL REPORT RAD, CHEST, 1 VIEW, NON DEPT INDICATION: pl effusion COMPARISON: Prior day's exam FINDINGS: Portable frontal view of the chest. IMPRESSION: Support Lines: Interval extubation. Remaining support hardware is stable. Lungs and pleura: Underinflated lungs with coarsened interstitial markings. Small left apical pneumothorax.Heart and mediastinum: Stable contours. Stable surgical changes.Additional findings: None. Signed: JR Ravi, Risa Nguyen Verified Date/Time: 11/13/2017 06:39:25 Reading Location: [facility] B1 C013Y CT Body Reading Room IUM, [id number] 05:02:00* Test Item Value Reference Range Comments CALCIUM IONIZED (BEAKER) (test kpbd=936) 1.14 mmol/L 1.12-1.27 PH, BLOOD (BEAKER) (test wqnp=5545) 7.48 BASIC METABOLIC [id number] 03:34:00* Test Item Value Reference Range Comments SODIUM (BEAKER) (test pfal=136) 145 meq/L 136-145 POTASSIUM (BEAKER) (test iwed=056) 3.5 meq/L 3.5-5.1 CHLORIDE (BEAKER) (test gwpk=187) 109 meq/L 98-107 CO2 (BEAKER) (test ixlv=348) 28 meq/L 22-29 BLOOD UREA NITROGEN (BEAKER) (test owzi=251) 16 mg/dL 7-21 CREATININE (BEAKER) (test ctob=637) 0.99 mg/dL 0.57-1.25 GLUCOSE RANDOM (BEAKER) (test kelg=329) 132 mg/dL 70-105 CALCIUM (BEAKER) (test zdov=714) 9.1 mg/dL 8.4-10.2 EGFR (BEAKER) (test qkyp=7257) 75 mL/min/1.73 sq m ESTIMATED GFR IS NOT ACCURATE CREATININE CLEARANCE IN PREDICTING GLOMERULAR FILTRATION RATE. ESTIMATED GFR IS NOT APPLICABLE FOR DIALYSIS PATIENTS. [id number] 03:34:00* Test Item Value Reference Range Comments MAGNESIUM (BEAKER) (test sozm=696) 2.2 mg/dL 1.6-2.6 [id number] 03:34:00* Test Item Value Reference Range Comments PHOSPHORUS (BEAKER) (test fnyb=759) 2.8 mg/dL 2.3-4.7 CBC W/PLT COUNT & AUTO [id number] 03:26:00* Test Item Value Reference Range Comments WHITE BLOOD CELL COUNT (BEAKER) (test bisv=434) 9.4 K/ L 3.5-10.5 RED BLOOD CELL COUNT (BEAKER) (test gnjy=543) 3.43 M/ L 4.63-6.08 HEMOGLOBIN (BEAKER) (test ubuy=281) 10.5 GM/DL 13.7-17.5 HEMATOCRIT (BEAKER) (test guby=402) 31.8 % 40.1-51.0 MEAN CORPUSCULAR VOLUME (BEAKER) (test euvf=929) 92.7 fL 79.0-92.2 MEAN CORPUSCULAR HEMOGLOBIN (BEAKER) (test piig=318) 30.6 pg 25.7-32.2 MEAN CORPUSCULAR HEMOGLOBIN CONC (BEAKER) (test hhcv=374) 33.0 GM/DL 32.3- 36.5 RED CELL DISTRIBUTION WIDTH (BEAKER) (test jolm=665) 12.7 % 11.6-14.4 PLATELET COUNT (BEAKER) (test ufys=976) 116 K/CU MM 150-450 MEAN PLATELET VOLUME (BEAKER) (test bmwm=376) 10.9 fL 9.4-12.4 NUCLEATED RED BLOOD CELLS (BEAKER) (test zwla=444) 0 /100 WBC 0-0 NEUTROPHILS RELATIVE PERCENT (BEAKER) (test rcak=985) 86 % LYMPHOCYTES RELATIVE PERCENT (BEAKER) (test jhbo=484) 8 % MONOCYTES RELATIVE PERCENT (BEAKER) (test usum=827) 6 % EOSINOPHILS RELATIVE PERCENT (BEAKER) (test igxv=613) 0 % BASOPHILS RELATIVE PERCENT (BEAKER) (test rygs=535) 0 % NEUTROPHILS ABSOLUTE COUNT (BEAKER) (test skbr=162) 8.08 K/ L 1.78-5.38 LYMPHOCYTES ABSOLUTE COUNT (BEAKER) (test ymgo=236) 0.71 K/ L 1.32-3.57 MONOCYTES ABSOLUTE COUNT (BEAKER) (test wvev=893) 0.55 K/ L 0.30-0.82 EOSINOPHILS ABSOLUTE COUNT (BEAKER) (test hbkj=843) 0.00 K/ L 0.04-0.54 BASOPHILS ABSOLUTE COUNT (BEAKER) (test grke=401) 0.01 K/ L 0.01-0.08 IMMATURE GRANULOCYTES-RELATIVE PERCENT (BEAKER) (test vewa=8438) 0 % 0-1 POCT-GLUCOSE [id number] 03:11:00* Test Item Value Reference Range Comments POC-GLUCOSE METER (BEAKER) (test wwxq=7936) 151 mg/dL 70-110 TESTED AT [address] [address] POCT-GLUCOSE [id number] 02:53:00* Test Item Value Reference Range Comments POC-GLUCOSE METER (BEAKER) (test yhpw=4570) 157 mg/dL 70-110 TESTED AT [address] [address] POCT-GLUCOSE [id number] 00:02:00* Test Item Value Reference Range Comments POC-GLUCOSE METER (BEAKER) (test elbe=7526) 129 mg/dL 70-110 TESTED AT [address] [address] POCT-GLUCOSE [id number] 23:17:00* Test Item Value Reference Range Comments POC-GLUCOSE METER (BEAKER) (test itvd=6146) 129 mg/dL 70-110 TESTED AT [address] [address] [id number] 19:42:00* Test Item Value Reference Range Comments POTASSIUM (BEAKER) (test dhce=598) 3.9 meq/L 3.5-5.1 PRN - repeat potassium levels every 1 hour until glucose level is less than 450 mg/[id number] 19:42:00* Test Item Value Reference Range Comments MAGNESIUM (BEAKER) (test dpnu=544) 2.0 mg/dL 1.6-2.6 PRN - repeat potassium levels every 1 hour until glucose level is less than 450 mg/[id number] 19:42:00* Test Item Value Reference Range Comments PHOSPHORUS (BEAKER) (test wykp=099) 2.9 mg/dL 2.3-4.7 PRN - repeat potassium levels every 1 hour until glucose level is less than 450 mg/[id number] 19:38:00* Test Item Value Reference Range Comments GLUCOSE RANDOM (BEAKER) (test qtgx=725) 122 mg/dL 70-105 PRN - repeat glucose levels every 1 hour or as specified by insulin titration orders until glucose level is less than 450 mg/dLCALCIUM, [id number] 19: 25:00* Test Item Value Reference Range Comments CALCIUM IONIZED (BEAKER) (test nfsk=000) 1.08 mmol/L 1.12-1.27 PH, BLOOD (BEAKER) (test qysj=3451) 7.47 Check serum Ionized Calcium level after 4 hours after IV Calcium replacement.POCT-GLUCOSE [id number] 18:48:00* Test Item Value Reference Range Comments POC-GLUCOSE METER (BEAKER) (test kvke=2948) 128 mg/dL 70-110 TESTED AT [address] [address] POCT-GLUCOSE [id number] 17:26:00* Test Item Value Reference Range Comments POC-GLUCOSE METER (BEAKER) (test hyez=3015) 115 mg/dL 70-110 TESTED AT [address] [address] POCT-GLUCOSE [id number] 17:26:00* Test Item Value Reference Range Comments POC-GLUCOSE METER (BEAKER) (test skzc=9142) 141 mg/dL 70-110 TESTED AT [address] [address] POCT-GLUCOSE [id number] 12:40:00* Test Item Value Reference Range Comments POC-GLUCOSE METER (BEAKER) (test hpli=7300) 146 mg/dL 70-110 TESTED AT [address] [address] BLOOD GAS, [id number] 12:26:00* Test Item Value Reference Range Comments PH ARTERIAL (BEAKER) (test ebbk=189) 7.42 7.35-7.45 PCO2 ARTERIAL (BEAKER) (test qrqp=842) 44 mmHg 35-45 PO2 ARTERIAL (BEAKER) (test vgwd=252) 73 mmHg 80-90 O2 SATURATION ARTERIAL (BEAKER) (test evdp=441) 94.9 % 96.0-97.0 HCO3 ARTERIAL (BEAKER) (test tabo=562) 28 mmol/L 21-29 BASE EXCESS ARTERIAL (BEAKER) (test pzhr=966) 3.0 mmol/L -2.0-3.0 PATIENT TEMPERATURE (BEAKER) (test oock=2015) 36.9 C FIO2 (BEAKER) (test qscf=0079) 50.0 % GLUCOSE-STAT [id number] 12:26:00* Test Item Value Reference Range Comments GLUCOSE RANDOM (BEAKER) (test grkk=894) 128 mg/dL 70-110 SODIUM NA-STAT [id number] 12:26:00* Test Item Value Reference Range Comments SODIUM (BEAKER) (test joth=752) 149 meq/L 135-148 HGB/HCT (H&H) - STAT [id number] 12:26:00* Test Item Value Reference Range Comments HEMOGLOBIN (BEAKER) (test yctf=344) 11.1 g/dL 13.0-16.8 HEMATOCRIT (BEAKER) (test zhbs=835) 33.0 % 40.0-50.0 POTASSIUM-STAT [id number] 12:25:00* Test Item Value Reference Range Comments POTASSIUM (BEAKER) (test dooe=245) 4.1 meq/L 3.6-5.5 MR, CARDIAC, [id number] 12:08:00Reason for exam:->cadFINAL REPORT Cardiovascular MRI - Chest: 11/11/2017 10:04 AM. Comparison: None available. Clinical History: 67 years old Male with chest pain x 1 day, up-trending troponin (0.04, 0.1, 2.97). T wave inversions on ECG. He was treated with heparin gtt, LHC significant for 100% LAD, 80-90% LCX, diffuse 70% proximal-RCA, 90-95% distal RCA stenoses, LVEDP 18. Echo done showed LVEF 50-55%. He was transferred to [facility] for further care/ CABG evaluation. Indication: This study is performed to assess myocardial damage, viability, and to quantitate left ventricular and valvular function. Technique: Let[employer] Achieva 1.5 Mary MRI scanner.* Turbo spin echo and gradient echo imaging for anatomic definition.* Dynamic cine imaging for cardiac chamber, wall-motion, and valvular analysis.* Flow quantification sequences for hemodynamics.* Delayed gadolinium-enhancement analysis (inversion recovery gradient echo sequence) after injection of gadolinium-chelate. RESULT: Potential study limitations: None. CHEST: The chest wall is unremarkable. The mediastinum appears normal. No significant adenopathy is identified. This study was not optimized to assess the lungs however, limited imaging reveals no gross abnormalities, except for a 1 cm heterogenous mass noted in the left lower lobe . The pulmonary arteries appear normal (main PA: 2.6 cm). The pericardium is unremarkable. VASCULAR:The aortic root is symmetric and normal in dimension. The sinotubular junction is preserved. The ascending thoracic aorta and aortic arch: Normal in course, caliber and contour, except for mild ectasia of the mid ascending thoracic aorta measuring 4.0 cm. The arch vessel branching pattern is normal. The imaged arch branch vessels are patent proximally. The descending thoracic aorta: Normal in course, caliber and contour. There is no acute aortic pathology, such as dissection, intramural hematoma, or contained rupture. CARDIAC CHAMBERS:The cardiac chambers have normal atrioventricular and ventriculoarterial concordance, as well as normal systemic and pulmonary venous return. Normal interatrial septum The interventricular septum appears intact. The cardiac chamber sizes are notable for mild left atrial enlargement. Left Ventricle:The left ventricle is normal in size and shape, and has normal systolic function. There is mild asymmetric basal septal hypertrophy, basal hamilton septum (1.2 cm). The remaining left ventricular myocardium is normal in thickness. There are regional wall motion abnormalities involving the mid to apical septal, apical inferior and LV apex, which are not significantly hypokinetic. The remaining myocardium has normal contractility.. Left ventricle:The left ventricle is normal in size and shape, and has normal systolic function. Quantitative left ventricular functional values are as follows:RVK=029 cc (normal 88-168 cc); EDVi=68 cc/m2 (normal 57- 92 cc/m2).ESV=63 cc (normal 23-60 cc); ESVi=32 cc/m2 (normal 15-34 cc/m2) .Stroke volume=73 cc (normal 58-114 cc); SVi=37 cc/m2 (normal 38-63 cc/m2) .LVEF=54 % (normal 55-75%).Cardiac Output=4.8 l/min.; Cardiac Index=2.4 l/min/ m2.LV nsqu=095 gm (normal 72-144 cc); LVMi=64 gm/m2 (normal 48-77 gm/m2). Delayed-enhancement imaging reveals delayed-enhancement in an ischemic pattern. Specifically, subendocardial pattern involving the mid to apical septal, apical inferior and LV apex. No mural or apical left ventricular thrombus is identified. Scar score=13/68 (semi-quantitative scar assessment was performed on a standard 17-segments model as follows:0=no scar, 1=1-25% transmurality, 2= 26-50% transmurality, 3=51-75% transmurality, 4=greater than 75%; total scar score is generated out of a maximum of 68 points). Transmurality index=2/17 ( represents the number of segments with greater than or equal to 51% transmurality). Right Ventricle:The right ventricle is normal in size and shape , and has normal systolic function on qualitative assessment, where imaged. VALVES:The mitral valve is mildly thickened. There is mild imaged mitral regurgitation. The papillary muscles are normal in size. There is no abnormal thickening or attachments. Integrating LV volumetric and aortic flow quantification data reveals:*Quantitative mitral regurgitant volume: 14 cc/beat* Quantitative mitral regurgitant fraction: 19 % The aortic valve is trileaflet and mild to moderately thickened. There is trivial aortic regurgitation.Flow quantification through the ascending aorta:*Forward volume: 59 cc/beat*Reverse volume: 3 cc/beat*Net forward volume: 56 cc/beat*Aortic regurgitant fraction: 5 % The tricuspid valve is mildly thickened. There is mild imaged tricuspid regurgitation. Flow quantification sequences through the SVC and right upper lobe pulmonary vein reveal normal flow patterns consistent with normal right and normal left atrial pressures. ABDOMEN:Limited imaging through the upper abdomen reveals no abnormalities of the imaged organs. IMPRESSION: 1. The left ventricle is normal in size and shape, and has normal systolic function (LVEF= 54 %; LVEDVi=68 cc/m2). There is thinning and severe hypokinesis of mid to apical septal, apical inferior and LV apex. There is mild asymmetric basal septal hypertrophy (basal hamilton septum (1.2 cm). The remaining left ventricular myocardium is normal in thickness. * Delayed-enhancement imaging reveals delayed-enhancement in an ischemic pattern. Specifically, subendocardial pattern involving the mid anteroseptal, inferoseptal and apical inferior septal. Transmural pattern involving apical septum and LV apex in the distal LAD distribution. No mural or apical left ventricular thrombus is identified. *Transmurality index=2/17 (represents the number of segments with greater than or equal to 51% transmurality). Scar score=68. 2. The right ventricle is normal in size and shape, and has normal systolic function on qualitative assessment, where imaged. 3. There is mild mitral regurgitation. There is mild tricuspid regurgitation. 4. Mild to moderately thickened aortic valve with trivial aortic valve insufficiency. 5. Mild ectasia of the mid ascending thoracic aorta measuring 4.0 cm. 6. There is a 1 cm heterogenous mass noted in the left lower lobe which need to be further evaluated by dedicated CT scan. Signed: Darron Davison MDReport Verified Date/Time: 11/12/2017 12:08: 11 Reading Location: [place] [address] Cardiology MRI OSE-STAT [id number] 09:42:00* Test Item Value Reference Range Comments GLUCOSE RANDOM (BEAKER) (test kirx=351) 98 mg/dL 70-110 SODIUM NA-STAT [id number] 09:42:00* Test Item Value Reference Range Comments SODIUM (BEAKER) (test oliw=474) 146 meq/L 135-148 POTASSIUM-STAT [id number] 09:42:00* Test Item Value Reference Range Comments POTASSIUM (BEAKER) (test kghg=549) 3.6 meq/L 3.6-5.5 GLUCOSE-STAT [id number] 09:42:00* Test Item Value Reference Range Comments GLUCOSE RANDOM (BEAKER) (test ceaa=736) 98 mg/dL 70-110 SODIUM NA-STAT [id number] 09:42:00* Test Item Value Reference Range Comments SODIUM (BEAKER) (test skyq=490) 146 meq/L 135-148 POTASSIUM-STAT [id number] 09:42:00* Test Item Value Reference Range Comments POTASSIUM (BEAKER) (test dscp=543) 3.6 meq/L 3.6-5.5 HGB/HCT (H&H) - STAT [id number] 09:42:00* Test Item Value Reference Range Comments HEMOGLOBIN (BEAKER) (test dxkc=665) 10.9 g/dL 13.0-16.8 HEMATOCRIT (BEAKER) (test cvpn=130) 32.0 % 40.0-50.0 HGB/HCT (H&H) - STAT [id number] 09:42:00* Test Item Value Reference Range Comments HEMOGLOBIN (BEAKER) (test xrct=208) 10.9 g/dL 13.0-16.8 HEMATOCRIT (BEAKER) (test eihc=366) 32.0 % 40.0-50.0 BLOOD GAS, [id number] 09:42:00* Test Item Value Reference Range Comments PH ARTERIAL (BEAKER) (test gwok=763) 7.41 7.35-7.45 PCO2 ARTERIAL (BEAKER) (test xvsf=309) 46 mmHg 35-45 PO2 ARTERIAL (BEAKER) (test jtyq=989) 55 mmHg 80-90 O2 SATURATION ARTERIAL (BEAKER) (test ngio=614) 89.0 % 96.0-97.0 HCO3 ARTERIAL (BEAKER) (test skti=648) 28 mmol/L 21-29 BASE EXCESS ARTERIAL (BEAKER) (test cfke=143) 2.9 mmol/L -2.0-3.0 PATIENT TEMPERATURE (BEAKER) (test uvrt=9496) 36.7 C FIO2 (BEAKER) (test nqyb=1331) 40.0 % POCT-GLUCOSE [id number] 09:37:00* Test Item Value Reference Range Comments POC-GLUCOSE METER (BEAKER) (test tbgx=5101) 110 mg/dL 70-110 TESTED AT [address] [address] POCT-GLUCOSE [id number] 08:27:00* Test Item Value Reference Range Comments POC-GLUCOSE METER (BEAKER) (test vuxu=5509) 111 mg/dL 70-110 TESTED AT [address] [address] POCT-GLUCOSE [id number] 06:35:00* Test Item Value Reference Range Comments POC-GLUCOSE METER (BEAKER) (test ovek=4561) 141 mg/dL 70-110 TESTED AT [address] [address] BASIC METABOLIC [id number] 06:05:00* Test Item Value Reference Range Comments SODIUM (BEAKER) (test gssr=311) 148 meq/L 136-145 POTASSIUM (BEAKER) (test voqv=878) 3.1 meq/L 3.5-5.1 CHLORIDE (BEAKER) (test xzto=009) 116 meq/L 98-107 CO2 (BEAKER) (test dtxv=681) 22 meq/L 22-29 BLOOD UREA NITROGEN (BEAKER) (test vlig=541) 12 mg/dL 7-21 CREATININE (BEAKER) (test ubjr=463) 1.08 mg/dL 0.57-1.25 GLUCOSE RANDOM (BEAKER) (test fwtm=749) 210 mg/dL 70-105 CALCIUM (BEAKER) (test tfbb=827) 8.5 mg/dL 8.4-10.2 EGFR (BEAKER) (test bssi=2111) 68 mL/min/1.73 sq m ESTIMATED GFR IS NOT ACCURATE CREATININE CLEARANCE IN PREDICTING GLOMERULAR FILTRATION RATE. ESTIMATED GFR IS NOT APPLICABLE FOR DIALYSIS PATIENTS. POCT-GLUCOSE [id number] 05:31:00* Test Item Value Reference Range Comments POC-GLUCOSE METER (BEAKER) (test gunk=7596) 187 mg/dL 70-110 TESTED AT [facility] [address] [facility] [address] LACTIC ACID, ARTERIAL, WHOLE [id number] 05:25:00* Test Item Value Reference Range Comments LACTATE BLOOD ARTERIAL (2) (BEAKER) (test fscf=6308) 3.5 mmol/L 0.5-2.2 Effective 08/06/2015: Units/Reference Range ChangeNew: 0.5-2.2 mmol/L Previous: 5 -20 mg/[facility]2017-11-12 04:39:00* Test Item Value Reference Range Comments WHITE BLOOD CELL COUNT (BEAKER) (test tppo=637) 6.0 K/ L 3.5-10.5 RED BLOOD CELL COUNT (BEAKER) (test dmce=691) 3.17 M/ L 4.63-6.08 HEMOGLOBIN (BEAKER) (test cxzl=848) 9.7 GM/DL 13.7-17.5 HEMATOCRIT (BEAKER) (test kuyr=044) 29.6 % 40.1-51.0 MEAN CORPUSCULAR VOLUME (BEAKER) (test qgfl=247) 93.4 fL 79.0-92.2 MEAN CORPUSCULAR HEMOGLOBIN (BEAKER) (test zotq=745) 30.6 pg 25.7-32.2 MEAN CORPUSCULAR HEMOGLOBIN CONC (BEAKER) (test odiw=126) 32.8 GM/DL 32.3- 36.5 RED CELL DISTRIBUTION WIDTH (BEAKER) (test cego=719) 12.5 % 11.6-14.4 PLATELET COUNT (BEAKER) (test ragq=731) 118 K/CU MM 150-450 MEAN PLATELET VOLUME (BEAKER) (test hqky=403) 10.4 fL 9.4-12.4 NUCLEATED RED BLOOD CELLS (BEAKER) (test whtx=171) 0 /100 WBC 0-0 POCT-GLUCOSE [id number] 04:34:00* Test Item Value Reference Range Comments POC-GLUCOSE METER (BEAKER) (test hpwe=6565) 219 mg/dL 70-110 TESTED AT [facility] [address] [facility] [address] BLOOD GAS, [id number] 04:28:00* Test Item Value Reference Range Comments PH ARTERIAL (BEAKER) (test lmoe=056) 7.44 7.35-7.45 PCO2 ARTERIAL (BEAKER) (test ezgz=289) 38 mmHg 35-45 PO2 ARTERIAL (BEAKER) (test aohi=654) 122 mmHg 80-90 O2 SATURATION ARTERIAL (BEAKER) (test euoa=911) 98.5 % 96.0-97.0 HCO3 ARTERIAL (BEAKER) (test vvdq=905) 25 mmol/L 21-29 BASE EXCESS ARTERIAL (BEAKER) (test esny=126) 0.8 mmol/L -2.0-3.0 PATIENT TEMPERATURE (BEAKER) (test lauu=0265) 36.9 C FIO2 (BEAKER) (test myue=4203) 80.0 % RAD, CHEST, 1 VIEW, NON [id number] 03:59:00Reason for exam:->s/p cardiac surgeryShould this be performed at the bedside?->YesFINAL REPORT CLINICAL INDICATION: Postop Comparison: 11/11/2017 The cardiomediastinal contours are stable. Central pulmonary vascular prominence and bilateral parenchymal opacities are unchanged. There is no pneumothorax. Support lines are stable. Signed: Kodi Turpin Verified Date/Time: 03:59:47 Reading Location: [address] Reading Room - GLUCOSE [id number] 02:58:00* Test Item Value Reference Range Comments POC-GLUCOSE METER (BEAKER) (test snno=5070) 278 mg/dL 70-110 TESTED AT [facility] [address] [facility] [address] POCT-GLUCOSE [id number] 02:58:00* Test Item Value Reference Range Comments POC-GLUCOSE METER (BEAKER) (test tyng=9178) 285 mg/dL 70-110 TESTED AT [facility] [address] [facility] [address] LACTIC ACID, ARTERIAL, WHOLE [id number] 02:58:00* Test Item Value Reference Range Comments LACTATE BLOOD ARTERIAL (2) (BEAKER) (test bsqp=3716) 11.7 mmol/L 0.5-2.2 Effective 08/06/2015: Units/Reference Range ChangeNew: 0.5-2.2 mmol/L Previous: 5 -20 mg/[id number] 02:38:00* Test Item Value Reference Range Comments PARTIAL THROMBOPLASTIN TIME (BEAKER) (test yewx=954) 53.4 seconds 22.5-36.0 PROTHROMBIN [id number] 02:37:00* Test Item Value Reference Range Comments PROTIME (BEAKER) (test roly=783) 17.5 seconds 11.7-14.7 INR (BEAKER) (test grsf=202) 1.4 <=5.9 RECOMMENDED COUMADIN/WARFARIN INR THERAPY RANGESSTANDARD DOSE: 2.0 - 3.0 Includes: PROPHYLAXIS for venous thrombosis, systemic embolization; TREATMENT for venous thrombosis and/or pulmonary embolus.HIGH RISK: Target INR is 2.5-3.5 for patients with mechanical heart valves.[id number] 02:37:00* Test Item Value Reference Range Comments FIBRINOGEN LEVEL (BEAKER) (test zige=416) 226 mg/dl 225-434 LACTIC ACID, ARTERIAL, WHOLE [id number] 02:36:00* Test Item Value Reference Range Comments LACTATE BLOOD ARTERIAL (2) (BEAKER) (test fggf=7374) 12.1 mmol/L 0.5-2.2 Effective 08/06/2015: Units/Reference Range ChangeNew: 0.5-2.2 mmol/L Previous: 5 -20 mg/dLBLOOD GAS, [id number] 02:28:00* Test Item Value Reference Range Comments PH ARTERIAL (BEAKER) (test zseb=290) 7.27 7.35-7.45 PCO2 ARTERIAL (BEAKER) (test qtos=622) 38 mmHg 35-45 PO2 ARTERIAL (BEAKER) (test yfpn=704) 97 mmHg 80-90 O2 SATURATION ARTERIAL (BEAKER) (test egil=580) 96.8 % 96.0-97.0 HCO3 ARTERIAL (BEAKER) (test kywt=499) 18 mmol/L 21-29 BASE EXCESS ARTERIAL (BEAKER) (test vxpl=750) -8.8 mmol/L -2.0-3.0 PATIENT TEMPERATURE (BEAKER) (test trgy=2892) 36.4 C FIO2 (BEAKER) (test cvid=5830) 80.0 % GLUCOSE-STAT [id number] 02:28:00* Test Item Value Reference Range Comments GLUCOSE RANDOM (BEAKER) (test tkyh=010) 265 mg/dL 70-110 HGB/HCT (H&H) - STAT [id number] 02:28:00* Test Item Value Reference Range Comments HEMOGLOBIN (BEAKER) (test zyqb=624) 11.2 g/dL 13.0-16.8 HEMATOCRIT (BEAKER) (test gndm=425) 33.0 % 40.0-50.0 SODIUM NA-STAT [id number] 02:27:00* Test Item Value Reference Range Comments SODIUM (BEAKER) (test kviv=480) 147 meq/L 135-148 POTASSIUM-STAT [id number] 02:26:00* Test Item Value Reference Range Comments POTASSIUM (BEAKER) (test bwyh=830) 4.5 meq/L 3.6-5.5 OXYGEN SATURATION, [id number] 02:26:00* Test Item Value Reference Range Comments O2 SATURATION (MEASURED) (BEAKER) (test qljy=2620) 76.2 % POCT-GLUCOSE [id number] 01:34:00* Test Item Value Reference Range Comments POC-GLUCOSE METER (BEAKER) (test diki=2346) 271 mg/dL 70-110 TESTED AT [facility] [address] [facility] [place] [address] CALCIUM, [id number] 01:34:00* Test Item Value Reference Range Comments CALCIUM IONIZED (BEAKER) (test gvgv=441) 1.30 mmol/L 1.12-1.27 PH, BLOOD (BEAKER) (test khmc=7301) 7.29 Check serum Ionized Calcium level after 4 hours after IV Calcium replacement.SODIUM NA-STAT [id number] 01:32:00* Test Item Value Reference Range Comments SODIUM (BEAKER) (test ddik=717) 146 meq/L 135-148 BLOOD GAS, [id number] 01:32:00* Test Item Value Reference Range Comments PH ARTERIAL (BEAKER) (test oxfm=980) 7.30 7.35-7.45 PCO2 ARTERIAL (BEAKER) (test afpc=068) 39 mmHg 35-45 PO2 ARTERIAL (BEAKER) (test aqky=751) 138 mmHg 80-90 O2 SATURATION ARTERIAL (BEAKER) (test eilx=528) 98.6 % 96.0-97.0 HCO3 ARTERIAL (BEAKER) (test aozk=748) 19 mmol/L 21-29 BASE EXCESS ARTERIAL (BEAKER) (test zvpb=927) -7.1 mmol/L -2.0-3.0 PATIENT TEMPERATURE (BEAKER) (test uwcf=2871) 35.8 C FIO2 (BEAKER) (test gqtq=9652) 80.0 % POTASSIUM-STAT [id number] 01:32:00* Test Item Value Reference Range Comments POTASSIUM (BEAKER) (test zkra=452) 3.0 meq/L 3.6-5.5 GLUCOSE-STAT [id number] 01:32:00* Test Item Value Reference Range Comments GLUCOSE RANDOM (BEAKER) (test mayc=968) 262 mg/dL 70-110 HGB/HCT (H&H) - STAT [id number] 01:32:00* Test Item Value Reference Range Comments HEMOGLOBIN (BEAKER) (test uktn=042) 11.2 g/dL 13.0-16.8 HEMATOCRIT (BEAKER) (test pxll=385) 33.0 % 40.0-50.0 BASIC METABOLIC [id number] 01:12:00* Test Item Value Reference Range Comments SODIUM (BEAKER) (test ocfd=604) 146 meq/L 136-145 POTASSIUM (BEAKER) (test jurq=920) 4.0 meq/L 3.5-5.1 CHLORIDE (BEAKER) (test jkau=335) 115 meq/L 98-107 CO2 (BEAKER) (test voob=463) 15 meq/L 22-29 BLOOD UREA NITROGEN (BEAKER) (test meeq=733) 14 mg/dL 7-21 CREATININE (BEAKER) (test artw=833) 1.10 mg/dL 0.57-1.25 GLUCOSE RANDOM (BEAKER) (test ktfo=793) 268 mg/dL 70-105 CALCIUM (BEAKER) (test yrid=221) 6.9 mg/dL 8.4-10.2 EGFR (BEAKER) (test uoeb=0395) 66 mL/min/1.73 sq m ESTIMATED GFR IS NOT ACCURATE CREATININE CLEARANCE IN PREDICTING GLOMERULAR FILTRATION RATE. ESTIMATED GFR IS NOT APPLICABLE FOR DIALYSIS PATIENTS. CBC W/PLT COUNT & AUTO [id number] 00:34:00* Test Item Value Reference Range Comments WHITE BLOOD CELL COUNT (BEAKER) (test zrpe=942) 12.2 K/ L 3.5-10.5 RED BLOOD CELL COUNT (BEAKER) (test milx=557) 3.79 M/ L 4.63-6.08 HEMOGLOBIN (BEAKER) (test blle=447) 11.8 GM/DL 13.7-17.5 HEMATOCRIT (BEAKER) (test kthu=322) 36.4 % 40.1-51.0 MEAN CORPUSCULAR VOLUME (BEAKER) (test zici=476) 96.0 fL 79.0-92.2 MEAN CORPUSCULAR HEMOGLOBIN (BEAKER) (test rmpg=811) 31.1 pg 25.7-32.2 MEAN CORPUSCULAR HEMOGLOBIN CONC (BEAKER) (test whqo=915) 32.4 GM/DL 32.3- 36.5 RED CELL DISTRIBUTION WIDTH (BEAKER) (test uerw=810) 12.6 % 11.6-14.4 PLATELET COUNT (BEAKER) (test spca=543) 149 K/CU MM 150-450 MEAN PLATELET VOLUME (BEAKER) (test awkz=405) 10.7 fL 9.4-12.4 NUCLEATED RED BLOOD CELLS (BEAKER) (test pads=381) 0 /100 WBC 0-0 NEUTROPHILS RELATIVE PERCENT (BEAKER) (test jjls=790) 79 % LYMPHOCYTES RELATIVE PERCENT (BEAKER) (test hxdb=148) 9 % MONOCYTES RELATIVE PERCENT (BEAKER) (test roaa=983) 12 % EOSINOPHILS RELATIVE PERCENT (BEAKER) (test czdf=693) 0 % BASOPHILS RELATIVE PERCENT (BEAKER) (test wryn=718) 0 % NEUTROPHILS ABSOLUTE COUNT (BEAKER) (test hjup=921) 9.62 K/ L 1.78-5.38 LYMPHOCYTES ABSOLUTE COUNT (BEAKER) (test qhbt=803) 1.08 K/ L 1.32-3.57 MONOCYTES ABSOLUTE COUNT (BEAKER) (test yxbk=261) 1.42 K/ L 0.30-0.82 EOSINOPHILS ABSOLUTE COUNT (BEAKER) (test ryql=940) 0.01 K/ L 0.04-0.54 BASOPHILS ABSOLUTE COUNT (BEAKER) (test ypab=329) 0.02 K/ L 0.01-0.08 IMMATURE GRANULOCYTES-RELATIVE PERCENT (BEAKER) (test dwzd=5702) 1 % 0-1 BLOOD GAS, [id number] 00:28:00* Test Item Value Reference Range Comments PH ARTERIAL (BEAKER) (test arkv=925) 7.30 7.35-7.45 PCO2 ARTERIAL (BEAKER) (test kxfi=338) 37 mmHg 35-45 PO2 ARTERIAL (BEAKER) (test mkra=375) 67 mmHg 80-90 O2 SATURATION ARTERIAL (BEAKER) (test vnkh=427) 93.8 % 96.0-97.0 HCO3 ARTERIAL (BEAKER) (test mrme=119) 18 mmol/L 21-29 BASE EXCESS ARTERIAL (BEAKER) (test oygs=372) -8.1 mmol/L -2.0-3.0 PATIENT TEMPERATURE (BEAKER) (test wbrq=7719) 34.7 C FIO2 (BEAKER) (test ccet=5932) 60.0 % POCT-GLUCOSE [id number] 23:53:00* Test Item Value Reference Range Comments POC-GLUCOSE METER (BEAKER) (test xlyb=8574) 261 mg/dL 70-110 TESTED AT [facility] [address] [facility] [id number] BLOOD GAS, [id number] 22:59:00* Test Item Value Reference Range Comments PH ARTERIAL (BEAKER) (test eluw=965) 7.28 7.35-7.45 PCO2 ARTERIAL (BEAKER) (test czoz=069) 42 mmHg 35-45 PO2 ARTERIAL (BEAKER) (test qyoj=706) 79 mmHg 80-90 O2 SATURATION ARTERIAL (BEAKER) (test efgl=725) 95.0 % 96.0-97.0 HCO3 ARTERIAL (BEAKER) (test qzaq=134) 19 mmol/L 21-29 BASE EXCESS ARTERIAL (BEAKER) (test rznc=529) -7.4 mmol/L -2.0-3.0 PATIENT TEMPERATURE (BEAKER) (test rnuj=6771) 35.8 C FIO2 (BEAKER) (test usqd=8698) 60.0 % POCT-GLUCOSE [id number] 22:13:00* Test Item Value Reference Range Comments POC-GLUCOSE METER (BEAKER) (test mvuo=2205) 278 mg/dL 70-110 TESTED AT [facility] [address] [facility] [address] RAD, CHEST, 1 VIEW, NON [id number] 21:42:00Reason for exam:->post- operativeShould this be performed at the bedside?->YesFINAL REPORT CLINICAL HISTORY: Postop evaluation COMPARISON: November 09, 2017 FINDINGS: A single view of the chest is submitted. The patient has undergone interval median sternotomy. There is an expected postoperative appearance of the mediastinum. The lung volumes are slightly low. Patchy perihilar and infrahilar opacities may reflect atelectasis but pneumonitis should be excluded clinically. There is no pneumothorax or large pleural collection. The tip of an endotracheal tube is above the kit at the level of the superior clavicular heads. A right IJ CVC tip overlies the superior vena cava. A left chest tube and mediastinal drain are in place. Signed: Kodi Turpin MDReport Verified Date /Time: 11/11/2017 21:42:42 Reading Location: [address] Reading Room [id number] 20:59:00* Test Item Value Reference Range Comments MAGNESIUM (BEAKER) (test luki=504) 2.4 mg/dL 1.6-2.6 Specimen slightly hemolyzed [id number] 20:59:00* Test Item Value Reference Range Comments PHOSPHORUS (BEAKER) (test mpem=969) 3.5 mg/dL 2.3-4.7 Specimen slightly hemolyzed BASIC METABOLIC [id number] 20:59:00* Test Item Value Reference Range Comments SODIUM (BEAKER) (test prrv=577) 143 meq/L 136-145 POTASSIUM (BEAKER) (test uocn=846) 3.3 meq/L 3.5-5.1 Specimen slightly hemolyzed CHLORIDE (BEAKER) (test uelp=682) 113 meq/L 98-107 CO2 (BEAKER) (test wdga=955) 18 meq/L 22-29 BLOOD UREA NITROGEN (BEAKER) (test bstq=976) 15 mg/dL 7-21 CREATININE (BEAKER) (test izjl=932) 1.10 mg/dL 0.57-1.25 Specimen slightly hemolyzed GLUCOSE RANDOM (BEAKER) (test zlno=694) 260 mg/dL 70-105 CALCIUM (BEAKER) (test ytdb=841) 8.1 mg/dL 8.4-10.2 EGFR (BEAKER) (test wyoe=4614) 66 mL/min/1.73 sq m ESTIMATED GFR IS NOT ACCURATE CREATININE CLEARANCE IN PREDICTING GLOMERULAR FILTRATION RATE. ESTIMATED GFR IS NOT APPLICABLE FOR DIALYSIS PATIENTS. [id number] 20:57:00* Test Item Value Reference Range Comments PROTIME (BEAKER) (test juas=724) 17.6 seconds 11.7-14.7 INR (BEAKER) (test adto=356) 1.4 <=5.9 PARTIAL THROMBOPLASTIN TIME (BEAKER) (test rjmu=014) 25.7 seconds 22.5-36.0 RECOMMENDED COUMADIN/WARFARIN INR THERAPY RANGESSTANDARD DOSE: 2.0 - 3.0 Includes: PROPHYLAXIS for venous thrombosis, systemic embolization; TREATMENT for venous thrombosis and/or pulmonary embolus.HIGH RISK: Target INR is 2.5-3.5 for patients with mechanical heart valves.LACTIC ACID, ARTERIAL, WHOLE [id number] 20:55:00* Test Item Value Reference Range Comments LACTATE BLOOD ARTERIAL (2) (BEAKER) (test thrj=7088) 7.2 mmol/L 0.5-2.2 Specimen slightly hemolyzed Effective 08/06/2015: Units/Reference Range ChangeNew: 0.5-2.2 mmol/L Previous: 5 -20 mg/dLCBC W/PLT COUNT & AUTO [id number] 20:48:00* Test Item Value Reference Range Comments WHITE BLOOD CELL COUNT (BEAKER) (test wwwh=379) 12.3 K/ L 3.5-10.5 RED BLOOD CELL COUNT (BEAKER) (test gpod=794) 4.35 M/ L 4.63-6.08 HEMOGLOBIN (BEAKER) (test mcsv=900) 13.5 GM/DL 13.7-17.5 HEMATOCRIT (BEAKER) (test vfda=640) 41.0 % 40.1-51.0 MEAN CORPUSCULAR VOLUME (BEAKER) (test ldpr=411) 94.3 fL 79.0-92.2 MEAN CORPUSCULAR HEMOGLOBIN (BEAKER) (test zorj=235) 31.0 pg 25.7-32.2 MEAN CORPUSCULAR HEMOGLOBIN CONC (BEAKER) (test auyc=959) 32.9 GM/DL 32.3- 36.5 RED CELL DISTRIBUTION WIDTH (BEAKER) (test ptde=240) 12.4 % 11.6-14.4 PLATELET COUNT (BEAKER) (test uqwr=264) 153 K/CU MM 150-450 MEAN PLATELET VOLUME (BEAKER) (test wjue=242) 10.7 fL 9.4-12.4 NUCLEATED RED BLOOD CELLS (BEAKER) (test dmal=359) 0 /100 WBC 0-0 NEUTROPHILS RELATIVE PERCENT (BEAKER) (test jjzz=354) 74 % LYMPHOCYTES RELATIVE PERCENT (BEAKER) (test pbiv=613) 14 % MONOCYTES RELATIVE PERCENT (BEAKER) (test wvyi=301) 10 % EOSINOPHILS RELATIVE PERCENT (BEAKER) (test mmiw=905) 1 % BASOPHILS RELATIVE PERCENT (BEAKER) (test tykt=845) 0 % NEUTROPHILS ABSOLUTE COUNT (BEAKER) (test rpah=332) 9.15 K/ L 1.78-5.38 LYMPHOCYTES ABSOLUTE COUNT (BEAKER) (test pmfs=667) 1.74 K/ L 1.32-3.57 MONOCYTES ABSOLUTE COUNT (BEAKER) (test elix=087) 1.24 K/ L 0.30-0.82 EOSINOPHILS ABSOLUTE COUNT (BEAKER) (test vfjo=448) 0.07 K/ L 0.04-0.54 BASOPHILS ABSOLUTE COUNT (BEAKER) (test ubsj=001) 0.05 K/ L 0.01-0.08 IMMATURE GRANULOCYTES-RELATIVE PERCENT (BEAKER) (test druf=1787) 1 % 0-1 BLOOD GAS, [id number] 20:38:00* Test Item Value Reference Range Comments PH ARTERIAL (BEAKER) (test znjq=170) 7.22 7.35-7.45 PCO2 ARTERIAL (BEAKER) (test hfln=367) 48 mmHg 35-45 PO2 ARTERIAL (BEAKER) (test raiq=073) 77 mmHg 80-90 O2 SATURATION ARTERIAL (BEAKER) (test yajk=007) 94.0 % 96.0-97.0 HCO3 ARTERIAL (BEAKER) (test ccle=669) 20 mmol/L 21-29 BASE EXCESS ARTERIAL (BEAKER) (test axcx=180) -8.5 mmol/L -2.0-3.0 PATIENT TEMPERATURE (BEAKER) (test vqwg=5138) 35.6 C FIO2 (BEAKER) (test wrwm=0548) 60.0 % OXYGEN SATURATION, [id number] 20:38:00* Test Item Value Reference Range Comments O2 SATURATION (MEASURED) (BEAKER) (test xgpi=9350) 80.5 % PLATELET [id number] 20:26:00* Test Item Value Reference Range Comments PLATELET COUNT (BEAKER) (test hcct=889) 104 K/CU MM 150-450 [id number] 20:03:00* Test Item Value Reference Range Comments ACTIVATED CLOTTING TIME (BEAKER) (test cpth=830) 98 sec TESTED AT [place] [id number] 20:03:00* Test Item Value Reference Range Comments ACTIVATED CLOTTING TIME (BEAKER) (test iyzz=657) 532 sec TESTED AT [place] [id number] 20:03:00* Test Item Value Reference Range Comments ACTIVATED CLOTTING TIME (BEAKER) (test bcwt=666) 439 sec TESTED AT [place] [id number] 20:03:00* Test Item Value Reference Range Comments ACTIVATED CLOTTING TIME (BEAKER) (test xawr=517) 510 sec TESTED AT [place] [id number] 20:03:00* Test Item Value Reference Range Comments ACTIVATED CLOTTING TIME (BEAKER) (test bzxs=975) 598 sec TESTED AT [place] [id number] [id number] 20:03:00* Test Item Value Reference Range Comments ACTIVATED CLOTTING TIME (BEAKER) (test npfo=428) 477 sec TESTED AT [place] [address] [id number] 20:03:00* Test Item Value Reference Range Comments ACTIVATED CLOTTING TIME (BEAKER) (test dekr=598) 549 sec TESTED AT [place] [address] [id number] 20:03:00* Test Item Value Reference Range Comments ACTIVATED CLOTTING TIME (BEAKER) (test iuok=029) 566 sec TESTED AT [place] [address] THROMBOELASTOGRAPH (TEG)2017-11-11 19:43:00* Test Item Value Reference Range Comments TEG ACTIVATED CLOTTING TIME (BEAKER) (test xwpy=3981) 3.8 minutes 4.0-7.0 TEG FIBRINOGEN ACTIVITY (BEAKER) (test tspl=2168) 64.6 degrees 61.0-73.0 TEG PLT. AGGREGATION (BEAKER) (test cpvw=2591) 58.1 MM 55.0-65.0 TGH ACTIVATED CLOTTING TIME (BEAKER) (test ypis=9509) 3.7 minutes 4.0-7.0 TGH FIBRINOGEN ACTIVITY (BEAKER) (test jppz=0214) 69.4 degrees 61.0-73.0 TGH PLT. AGGREGATION (BEAKER) (test xlbq=8971) 56.7 MM 55.0-65.0 [id number] 19:24:00* Test Item Value Reference Range Comments PARTIAL THROMBOPLASTIN TIME (BEAKER) (test emdw=396) 24.3 seconds 22.5-36.0 [id number] 19:24:00* Test Item Value Reference Range Comments FIBRINOGEN LEVEL (BEAKER) (test ormm=523) 214 mg/dl 225-434 PROTHROMBIN TIME/[id number] 19:23:00* Test Item Value Reference Range Comments PROTIME (BEAKER) (test rfqp=006) 20.7 seconds 11.7-14.7 INR (BEAKER) (test audy=766) 1.8 <=5.9 RECOMMENDED COUMADIN/WARFARIN INR THERAPY RANGESSTANDARD DOSE: 2.0 - 3.0 Includes: PROPHYLAXIS for venous thrombosis, systemic embolization; TREATMENT for venous thrombosis and/or pulmonary embolus.HIGH RISK: Target INR is 2.5-3.5 for patients with mechanical heart valves.CALCIUM, [id number] 19:02:00* Test Item Value Reference Range Comments CALCIUM IONIZED (BEAKER) (test zlqn=770) 0.99 mmol/L 1.12-1.27 PH, BLOOD (BEAKER) (test olqi=7045) 7.28 HGB/HCT (H&H) - STAT [id number] 19:02:00* Test Item Value Reference Range Comments HEMOGLOBIN (BEAKER) (test jwbn=614) 10.8 g/dL 13.0-16.8 HEMATOCRIT (BEAKER) (test mtvo=565) 32.0 % 40.0-50.0 GLUCOSE-STAT [id number] 19:02:00* Test Item Value Reference Range Comments GLUCOSE RANDOM (BEAKER) (test tsii=039) 206 mg/dL 70-110 BLOOD GAS, [id number] 19:02:00* Test Item Value Reference Range Comments PH ARTERIAL (BEAKER) (test sdew=746) 7.30 7.35-7.45 PCO2 ARTERIAL (BEAKER) (test bntj=881) 50 mmHg 35-45 PO2 ARTERIAL (BEAKER) (test xrae=453) 230 mmHg 80-90 O2 SATURATION ARTERIAL (BEAKER) (test zvpp=661) 99.4 % 96.0-97.0 HCO3 ARTERIAL (BEAKER) (test vbye=216) 24 mmol/L 21-29 BASE EXCESS ARTERIAL (BEAKER) (test qlal=819) -3.2 mmol/L -2.0-3.0 PATIENT TEMPERATURE (BEAKER) (test lclv=0338) 36.0 C FIO2 (BEAKER) (test afpn=5456) 100.0 % SODIUM NA-STAT [id number] 19:01:00* Test Item Value Reference Range Comments SODIUM (BEAKER) (test xkyn=213) 138 meq/L 135-148 POTASSIUM-STAT [id number] 19:01:00* Test Item Value Reference Range Comments POTASSIUM (BEAKER) (test ttjk=287) 3.5 meq/L 3.6-5.5 BLOOD GAS, [id number] 18:11:00* Test Item Value Reference Range Comments PH ARTERIAL (BEAKER) (test mpwf=561) 7.40 7.35-7.45 PCO2 ARTERIAL (BEAKER) (test hstr=896) 38 mmHg 35-45 PO2 ARTERIAL (BEAKER) (test iezc=839) 292 mmHg 80-90 O2 SATURATION ARTERIAL (BEAKER) (test mtxi=767) 99.7 % 96.0-97.0 HCO3 ARTERIAL (BEAKER) (test lwmp=937) 23 mmol/L 21-29 BASE EXCESS ARTERIAL (BEAKER) (test zthv=542) -1.4 mmol/L -2.0-3.0 PATIENT TEMPERATURE (BEAKER) (test ygof=8074) 36.7 C FIO2 (BEAKER) (test tobb=1667) 80.0 % GLUCOSE-STAT [id number] 18:11:00* Test Item Value Reference Range Comments GLUCOSE RANDOM (BEAKER) (test dwca=710) 208 mg/dL 70-110 HGB/HCT (H&H) - STAT [id number] 18:11:00* Test Item Value Reference Range Comments HEMOGLOBIN (BEAKER) (test iobb=265) 10.4 g/dL 13.0-16.8 HEMATOCRIT (BEAKER) (test ngvk=720) 31.0 % 40.0-50.0 SODIUM NA-STAT [id number] 18:10:00* Test Item Value Reference Range Comments SODIUM (BEAKER) (test bbkf=455) 137 meq/L 135-148 POTASSIUM-STAT [id number] 18:10:00* Test Item Value Reference Range Comments POTASSIUM (BEAKER) (test jnau=035) 5.4 meq/L 3.6-5.5 SODIUM NA-STAT [id number] 17:39:00* Test Item Value Reference Range Comments SODIUM (BEAKER) (test phsu=587) 138 meq/L 135-148 BLOOD GAS, [id number] 17:39:00* Test Item Value Reference Range Comments PH ARTERIAL (BEAKER) (test tgxt=081) 7.33 7.35-7.45 PCO2 ARTERIAL (BEAKER) (test rhjo=566) 45 mmHg 35-45 PO2 ARTERIAL (BEAKER) (test worw=643) 329 mmHg 80-90 O2 SATURATION ARTERIAL (BEAKER) (test uifp=389) 99.7 % 96.0-97.0 HCO3 ARTERIAL (BEAKER) (test rgyk=803) 23 mmol/L 21-29 BASE EXCESS ARTERIAL (BEAKER) (test vjyd=186) -2.9 mmol/L -2.0-3.0 PATIENT TEMPERATURE (BEAKER) (test nlnx=8378) 36.2 C FIO2 (BEAKER) (test gnah=1896) 80.0 % POTASSIUM-STAT [id number] 17:39:00* Test Item Value Reference Range Comments POTASSIUM (BEAKER) (test tiso=347) 5.6 meq/L 3.6-5.5 GLUCOSE-STAT [id number] 17:39:00* Test Item Value Reference Range Comments GLUCOSE RANDOM (BEAKER) (test yodz=586) 204 mg/dL 70-110 HGB/HCT (H&H) - STAT [id number] 17:39:00* Test Item Value Reference Range Comments HEMOGLOBIN (BEAKER) (test ylcz=157) 11.0 g/dL 13.0-16.8 HEMATOCRIT (BEAKER) (test uwsl=600) 32.0 % 40.0-50.0 SODIUM NA-STAT [id number] 17:11:00* Test Item Value Reference Range Comments SODIUM (BEAKER) (test txbf=579) 137 meq/L 135-148 BLOOD GAS, [id number] 17:11:00* Test Item Value Reference Range Comments PH ARTERIAL (BEAKER) (test sfkb=595) 7.36 7.35-7.45 PCO2 ARTERIAL (BEAKER) (test vwoj=026) 36 mmHg 35-45 PO2 ARTERIAL (BEAKER) (test ulaq=617) 232 mmHg 80-90 O2 SATURATION ARTERIAL (BEAKER) (test wsqk=348) 99.5 % 96.0-97.0 HCO3 ARTERIAL (BEAKER) (test cxpo=929) 21 mmol/L 21-29 BASE EXCESS ARTERIAL (BEAKER) (test lnnc=506) -5.0 mmol/L -2.0-3.0 PATIENT TEMPERATURE (BEAKER) (test zdjd=4333) 32.2 C FIO2 (BEAKER) (test pyrs=6448) 60.0 % POTASSIUM-STAT [id number] 17:11:00* Test Item Value Reference Range Comments POTASSIUM (BEAKER) (test bxik=016) 5.7 meq/L 3.6-5.5 GLUCOSE-STAT [id number] 17:11:00* Test Item Value Reference Range Comments GLUCOSE RANDOM (BEAKER) (test jsqb=126) 211 mg/dL 70-110 HGB/HCT (H&H) - STAT [id number] 17:11:00* Test Item Value Reference Range Comments HEMOGLOBIN (BEAKER) (test gtjr=175) 11.3 g/dL 13.0-16.8 HEMATOCRIT (BEAKER) (test jdvi=111) 33.0 % 40.0-50.0 BLOOD GAS, [id number] 16:43:00* Test Item Value Reference Range Comments PH ARTERIAL (BEAKER) (test hlsm=240) 7.35 7.35-7.45 PCO2 ARTERIAL (BEAKER) (test oane=558) 39 mmHg 35-45 PO2 ARTERIAL (BEAKER) (test jjqa=124) 276 mmHg 80-90 O2 SATURATION ARTERIAL (BEAKER) (test ehcu=750) 99.6 % 96.0-97.0 HCO3 ARTERIAL (BEAKER) (test eeww=286) 23 mmol/L 21-29 BASE EXCESS ARTERIAL (BEAKER) (test uxws=201) -4.9 mmol/L -2.0-3.0 PATIENT TEMPERATURE (BEAKER) (test tqsd=7662) 30.0 C FIO2 (BEAKER) (test rfyy=4022) 60.0 % SODIUM NA-STAT [id number] 16:43:00* Test Item Value Reference Range Comments SODIUM (BEAKER) (test dasr=618) 134 meq/L 135-148 POTASSIUM-STAT [id number] 16:43:00* Test Item Value Reference Range Comments POTASSIUM (BEAKER) (test glrk=839) 6.3 meq/L 3.6-5.5 Sample NOT Hemolyzed. GLUCOSE-STAT [id number] 16:43:00* Test Item Value Reference Range Comments GLUCOSE RANDOM (BEAKER) (test bppb=780) 224 mg/dL 70-110 HGB/HCT (H&H) - STAT [id number] 16:43:00* Test Item Value Reference Range Comments HEMOGLOBIN (BEAKER) (test ohzt=282) 11.2 g/dL 13.0-16.8 HEMATOCRIT (BEAKER) (test zxtt=347) 33.0 % 40.0-50.0 BLOOD GAS, [id number] 16:15:00* Test Item Value Reference Range Comments PH ARTERIAL (BEAKER) (test ysrb=172) 7.39 7.35-7.45 PCO2 ARTERIAL (BEAKER) (test btdv=371) 42 mmHg 35-45 PO2 ARTERIAL (BEAKER) (test wdfs=131) 290 mmHg 80-90 O2 SATURATION ARTERIAL (BEAKER) (test nexx=892) 99.7 % 96.0-97.0 HCO3 ARTERIAL (BEAKER) (test cwas=345) 27 mmol/L 21-29 BASE EXCESS ARTERIAL (BEAKER) (test xqhg=244) -0.5 mmol/L -2.0-3.0 PATIENT TEMPERATURE (BEAKER) (test zjlv=0689) 30.2 C FIO2 (BEAKER) (test gdap=6142) 60.0 % SODIUM NA-STAT [id number] 16:15:00* Test Item Value Reference Range Comments SODIUM (BEAKER) (test mddi=835) 131 meq/L 135-148 POTASSIUM-STAT [id number] 16:15:00* Test Item Value Reference Range Comments POTASSIUM (BEAKER) (test kbbw=697) 7.2 meq/L 3.6-5.5 GLUCOSE-STAT [id number] 16:15:00* Test Item Value Reference Range Comments GLUCOSE RANDOM (BEAKER) (test hptx=422) 232 mg/dL 70-110 HGB/HCT (H&H) - STAT [id number] 16:15:00* Test Item Value Reference Range Comments HEMOGLOBIN (BEAKER) (test hpoe=470) 11.2 g/dL 13.0-16.8 HEMATOCRIT (BEAKER) (test jlcf=142) 33.0 % 40.0-50.0 POTASSIUM-STAT [id number] 15:57:00* Test Item Value Reference Range Comments POTASSIUM (BEAKER) (test eewp=193) 6.2 meq/L 3.6-5.5 Sample NOT Hemolyzed. BLOOD GAS, [id number] 15:56:00* Test Item Value Reference Range Comments PH ARTERIAL (BEAKER) (test mjpx=544) 7.44 7.35-7.45 PCO2 ARTERIAL (BEAKER) (test wanj=407) 34 mmHg 35-45 PO2 ARTERIAL (BEAKER) (test tyge=759) 260 mmHg 80-90 O2 SATURATION ARTERIAL (BEAKER) (test kmha=303) 99.6 % 96.0-97.0 HCO3 ARTERIAL (BEAKER) (test seds=175) 24 mmol/L 21-29 BASE EXCESS ARTERIAL (BEAKER) (test suuf=415) -1.7 mmol/L -2.0-3.0 PATIENT TEMPERATURE (BEAKER) (test hkrt=0277) 31.0 C FIO2 (BEAKER) (test izjr=7894) 50.0 % GLUCOSE-STAT [id number] 15:56:00* Test Item Value Reference Range Comments GLUCOSE RANDOM (BEAKER) (test tifg=628) 221 mg/dL 70-110 HGB/HCT (H&H) - STAT [id number] 15:56:00* Test Item Value Reference Range Comments HEMOGLOBIN (BEAKER) (test bwdq=935) 10.7 g/dL 13.0-16.8 HEMATOCRIT (BEAKER) (test pjwv=810) 31.0 % 40.0-50.0 SODIUM NA-STAT [id number] 15:56:00* Test Item Value Reference Range Comments SODIUM (BEAKER) (test txhd=074) 130 meq/L 135-148 SODIUM NA-STAT [id number] 13:01:00* Test Item Value Reference Range Comments SODIUM (BEAKER) (test quzg=348) 135 meq/L 135-148 POTASSIUM-STAT [id number] 13:01:00* Test Item Value Reference Range Comments POTASSIUM (BEAKER) (test nrwi=282) 3.7 meq/L 3.6-5.5 HGB/HCT (H&H) - STAT [id number] 13:01:00* Test Item Value Reference Range Comments HEMOGLOBIN (BEAKER) (test dzxj=542) 14.8 g/dL 13.0-16.8 HEMATOCRIT (BEAKER) (test hgve=154) 44.0 % 40.0-50.0 BLOOD GAS, [id number] 13:01:00* Test Item Value Reference Range Comments PH ARTERIAL (BEAKER) (test ybmw=395) 7.41 7.35-7.45 PCO2 ARTERIAL (BEAKER) (test mkjm=265) 40 mmHg 35-45 PO2 ARTERIAL (BEAKER) (test eamg=269) 334 mmHg 80-90 O2 SATURATION ARTERIAL (BEAKER) (test owvm=016) 99.7 % 96.0-97.0 HCO3 ARTERIAL (BEAKER) (test xafl=488) 25 mmol/L 21-29 BASE EXCESS ARTERIAL (BEAKER) (test ubms=458) -0.3 mmol/L -2.0-3.0 PATIENT TEMPERATURE (BEAKER) (test rnxx=0366) 36.1 C FIO2 (BEAKER) (test pdsi=7264) 90.0 % GLUCOSE-STAT [id number] 13:01:00* Test Item Value Reference Range Comments GLUCOSE RANDOM (BEAKER) (test rawn=072) 146 mg/dL 70-110 POCT-GLUCOSE [id number] 08:27:00* Test Item Value Reference Range Comments POC-GLUCOSE METER (BEAKER) (test oteu=8249) 127 mg/dL 70-110 TESTED AT [facility] [address] [facility] [address] BASIC METABOLIC [id number] 06:07:00* Test Item Value Reference Range Comments SODIUM (BEAKER) (test iike=376) 139 meq/L 136-145 POTASSIUM (BEAKER) (test tkkg=523) 4.1 meq/L 3.5-5.1 CHLORIDE (BEAKER) (test nrbu=212) 108 meq/L 98-107 CO2 (BEAKER) (test lbwf=662) 22 meq/L 22-29 BLOOD UREA NITROGEN (BEAKER) (test vnbj=861) 20 mg/dL 7-21 CREATININE (BEAKER) (test mbhe=266) 1.10 mg/dL 0.57-1.25 GLUCOSE RANDOM (BEAKER) (test fzre=328) 139 mg/dL 70-105 CALCIUM (BEAKER) (test nzxr=773) 9.2 mg/dL 8.4-10.2 EGFR (BEAKER) (test dick=8733) 66 mL/min/1.73 sq m ESTIMATED GFR IS NOT ACCURATE CREATININE CLEARANCE IN PREDICTING GLOMERULAR FILTRATION RATE. ESTIMATED GFR IS NOT APPLICABLE FOR DIALYSIS PATIENTS. [id number] 05:39:00* Test Item Value Reference Range Comments PARTIAL THROMBOPLASTIN TIME (BEAKER) (test atih=973) 82.3 seconds 22.5-36.0 CBC (HEMOGRAM ONLY)2017-11-11 05:21:00* Test Item Value Reference Range Comments WHITE BLOOD CELL COUNT (BEAKER) (test ngwi=491) 8.1 K/ L 3.5-10.5 RED BLOOD CELL COUNT (BEAKER) (test agtd=125) 4.77 M/ L 4.63-6.08 HEMOGLOBIN (BEAKER) (test xgii=873) 14.7 GM/DL 13.7-17.5 HEMATOCRIT (BEAKER) (test dhaw=124) 42.9 % 40.1-51.0 MEAN CORPUSCULAR VOLUME (BEAKER) (test ffyc=822) 89.9 fL 79.0-92.2 MEAN CORPUSCULAR HEMOGLOBIN (BEAKER) (test eecw=217) 30.8 pg 25.7-32.2 MEAN CORPUSCULAR HEMOGLOBIN CONC (BEAKER) (test djeb=281) 34.3 GM/DL 32.3- 36.5 RED CELL DISTRIBUTION WIDTH (BEAKER) (test jaxf=631) 12.2 % 11.6-14.4 PLATELET COUNT (BEAKER) (test ypmr=754) 175 K/CU MM 150-450 MEAN PLATELET VOLUME (BEAKER) (test neuk=665) 10.9 fL 9.4-12.4 NUCLEATED RED BLOOD CELLS (BEAKER) (test ordq=698) 0 /100 WBC 0-0 [id number] 00:06:00* Test Item Value Reference Range Comments PARTIAL THROMBOPLASTIN TIME (BEAKER) (test shvi=508) 75.4 seconds 22.5-36.0 POCT-GLUCOSE [id number] 21:19:00* Test Item Value Reference Range Comments POC-GLUCOSE METER (BEAKER) (test nqko=6816) 202 mg/dL 70-110 TESTED AT [facility] [address] [facility] [address] TROPONIN [id number] 18:04:00* Test Item Value Reference Range Comments TROPONIN I (BEAKER) (test ufru=075) 5.36 ng/mL 0.00-0.03 Troponin I (TnI) levels must be interpreted in the context of the presenting symptoms and the clinical findings. Elevated TnI levels indicate myocardial damage, but are not specific for ischemic heart disease. Elevated TnI levels are seen in patients with other cardiac conditions (including myocarditis and congestive heart failure), and slight TnI elevations occur in patients with other conditions, including sepsis, renal failure, acidosis, acute neurological disease, and persistent tachyarrhythmia.POCT-GLUCOSE [id number] 17:54:00* Test Item Value Reference Range Comments POC-GLUCOSE METER (RingTu) (test vcce=8620) 234 mg/dL 70-110 TESTED AT [place] [id number] [facility] [address] [id number] 14:26:00* Test Item Value Reference Range Comments PARTIAL THROMBOPLASTIN TIME (flikdateAKER) (test sokj=202) 60.3 seconds 22.5-36.0 TROPONIN [id number] 12:09:00* Test Item Value Reference Range Comments TROPONIN I (BEAKER) (test iiat=787) 8.19 ng/mL 0.00-0.03 Troponin I (TnI) levels must be interpreted in the context of the presenting symptoms and the clinical findings. Elevated TnI levels indicate myocardial damage, but are not specific for ischemic heart disease. Elevated TnI levels are seen in patients with other cardiac conditions (including myocarditis and congestive heart failure), and slight TnI elevations occur in patients with other conditions, including sepsis, renal failure, acidosis, acute neurological disease, and persistent tachyarrhythmia.HEMOGLOBIN [id number] 09:53:00* Test Item Value Reference Range Comments HEMOGLOBIN A1C (BEAKER) (test avpe=375) 6.7 % 4.3-6.1 POCT-GLUCOSE [id number] 08:48:00* Test Item Value Reference Range Comments POC-GLUCOSE METER (RingTu) (test xlll=1507) 189 mg/dL 70-110 TESTED AT [facility] [address] [facility] [place] [address] PT/[id number] 06:59:00* Test Item Value Reference Range Comments PROTIME (BEAKER) (test xyid=844) 15.4 seconds 11.7-14.7 INR (BEAKER) (test kpdh=896) 1.2 <=5.9 PARTIAL THROMBOPLASTIN TIME (BEAKER) (test pcdf=730) 59.8 seconds 22.5-36.0 RECOMMENDED COUMADIN/WARFARIN INR THERAPY RANGESSTANDARD DOSE: 2.0 - 3.0 Includes: PROPHYLAXIS for venous thrombosis, systemic embolization; TREATMENT for venous thrombosis and/or pulmonary embolus.HIGH RISK: Target INR is 2.5-3.5 for patients with mechanical heart valves.CBC (HEMOGRAM ONLY)2017-11-10 06:58:00 * Test Item Value Reference Range Comments WHITE BLOOD CELL COUNT (BEAKER) (test ducs=575) 9.1 K/ L 3.5-10.5 RED BLOOD CELL COUNT (BEAKER) (test rkcg=381) 5.07 M/ L 4.63-6.08 HEMOGLOBIN (BEAKER) (test kszc=562) 15.4 GM/DL 13.7-17.5 HEMATOCRIT (BEAKER) (test rlrd=671) 45.7 % 40.1-51.0 MEAN CORPUSCULAR VOLUME (BEAKER) (test ptzj=163) 90.1 fL 79.0-92.2 MEAN CORPUSCULAR HEMOGLOBIN (BEAKER) (test psdc=570) 30.4 pg 25.7-32.2 MEAN CORPUSCULAR HEMOGLOBIN CONC (BEAKER) (test yyoa=717) 33.7 GM/DL 32.3- 36.5 RED CELL DISTRIBUTION WIDTH (BEAKER) (test bbvl=575) 12.0 % 11.6-14.4 PLATELET COUNT (BEAKER) (test zyvf=974) 214 K/CU MM 150-450 MEAN PLATELET VOLUME (BEAKER) (test wgma=810) 10.8 fL 9.4-12.4 NUCLEATED RED BLOOD CELLS (BEAKER) (test helo=141) 0 /100 WBC 0-0 RAD, CHEST, 1 VIEW, NON [id number] 04:52:00Reason for exam:->pre opShould this be performed at the bedside?->YesFINAL REPORT History: Preoperative evaluation, surgery unspecified. Comparison: None. Findings: A single view of the chest is submitted. The cardiomediastinal contours are unremarkable. The right hemidiaphragm is slightly elevated. There is no focal consolidation, pneumothorax, large pleural effusion or evidence of overt pulmonary edema. There is no acute bony abnormality. Signed: Kodi Turpin MDReport Verified Date/Time: 11/10/2017 04:52:57 Reading Location: [address] Reading Room [id number] 01:48:00* Test Item Value Reference Range Comments THYROID STIMULATING HORMONE (WENDYAKER) (test mzrm=561) 0.78 uIU/mL 0.35-4.94 TROPONIN [id number] 00:46:00* Test Item Value Reference Range Comments TROPONIN I (GERMAINE) (test dwhh=638) 7.12 ng/mL 0.00-0.03 Troponin I (TnI) levels must be interpreted in the context of the presenting symptoms and the clinical findings. Elevated TnI levels indicate myocardial damage, but are not specific for ischemic heart disease. Elevated TnI levels are seen in patients with other cardiac conditions (including myocarditis and congestive heart failure), and slight TnI elevations occur in patients with other conditions, including sepsis, renal failure, acidosis, acute neurological disease, and persistent tachyarrhythmia.[id number] 22:59:00* Test Item Value Reference Range Comments PARTIAL THROMBOPLASTIN TIME (BEAKER) (test rfjl=903) 28.2 seconds 22.5-36.0 PROTHROMBIN TIME/[id number] 22:58:00* Test Item Value Reference Range Comments PROTIME (BEAKER) (test oozt=759) 13.9 seconds 11.7-14.7 INR (BEAKER) (test liqz=299) 1.1 <=5.9 RECOMMENDED COUMADIN/WARFARIN INR THERAPY RANGESSTANDARD DOSE: 2.0 - 3.0 Includes: PROPHYLAXIS for venous thrombosis, systemic embolization; TREATMENT for venous thrombosis and/or pulmonary embolus.HIGH RISK: Target INR is 2.5-3.5 for patients with mechanical heart valves.TROPONIN [id number] 22:37:00* Test Item Value Reference Range Comments TROPONIN I (BEAKER) (test ebse=949) 7.80 ng/mL 0.00-0.03 Troponin I (TnI) levels must be interpreted in the context of the presenting symptoms and the clinical findings. Elevated TnI levels indicate myocardial damage, but are not specific for ischemic heart disease. Elevated TnI levels are seen in patients with other cardiac conditions (including myocarditis and congestive heart failure), and slight TnI elevations occur in patients with other conditions, including sepsis, renal failure, acidosis, acute neurological disease, and persistent tachyarrhythmia.B-TYPE NATRIURETIC FACTOR (BNP) 22:35:00* Test Item Value Reference Range Comments B-TYPE NATRIURETIC PEPTIDE (BEAKER) (test lifc=764) 137 pg/mL 0-100 [id number] 22:29:00* Test Item Value Reference Range Comments MAGNESIUM (BEAKER) (test wvbm=985) 2.4 mg/dL 1.6-2.6 Specimen slightly hemolyzed COMPREHENSIVE METABOLIC [id number] 22:29:00* Test Item Value Reference Range Comments TOTAL PROTEIN (BEAKER) (test bsva=159) 7.5 gm/dL 6.0-8.3 Specimen slightly hemolyzed ALBUMIN (BEAKER) (test okvz=6383) 4.1 g/dL 3.5-5.0 Specimen slightly hemolyzed ALKALINE PHOSPHATASE (BEAKER) (test vpvi=226) 47 U/L 40-150 BILIRUBIN TOTAL (BEAKER) (test gegv=182) 1.2 mg/dL 0.2-1.2 Specimen slightly hemolyzed SODIUM (BEAKER) (test tent=764) 137 meq/L 136-145 POTASSIUM (BEAKER) (test ngwl=937) 4.3 meq/L 3.5-5.1 Specimen slightly hemolyzed CHLORIDE (BEAKER) (test trzw=074) 105 meq/L 98-107 CO2 (BEAKER) (test hgbb=354) 22 meq/L 22-29 BLOOD UREA NITROGEN (BEAKER) (test pydl=426) 10 mg/dL 7-21 CREATININE (BEAKER) (test tpzk=940) 1.08 mg/dL 0.57-1.25 Specimen slightly hemolyzed GLUCOSE RANDOM (BEAKER) (test wota=308) 191 mg/dL 70-105 CALCIUM (BEAKER) (test gcxz=300) 9.3 mg/dL 8.4-10.2 AST (SGOT) (BEAKER) (test fdee=587) 61 U/L 5-34 Specimen slightly hemolyzed ALT (SGPT) (BEAKER) (test jgaj=416) 24 U/L 6-55 Specimen slightly hemolyzed EGFR (BEAKER) (test sbxp=3700) 68 mL/min/1.73 sq m INSUFFICIENT CLINICAL DATA TO CALCULATE ESTIMATED GFR. LIPID [id number] 22:29:00* Test Item Value Reference Range Comments TRIGLYCERIDES (BEAKER) (test tzal=996) 58 mg/dL Specimen slightly hemolyzed CHOLESTEROL (BEAKER) (test mfrw=398) 126 mg/dL Specimen slightly hemolyzed HDL CHOLESTEROL (BEAKER) (test qvig=293) 43 mg/dL LDL CHOLESTEROL CALCULATED (BEAKER) (test fxap=485) 71 mg/dL Triglyceride Reference Range: Low Risk <150 Borderline 150-199 High Risk 200-499 Very High Risk >=500Cholesterol Reference Range: Low Risk <200 Borderline 200-239 High Risk >240HDL Cholesterol Reference Range: Low Risk >=60 High Risk <40LDL Cholesterol Reference Range: Optimal <100 Near Optimal 100-129 Borderline 130-159 High 160-189 Very High >=190 CBC W/ PLT COUNT & AUTO [id number] 22:12:00* Test Item Value Reference Range Comments WHITE BLOOD CELL COUNT (BEAKER) (test nkrx=078) 7.6 K/ L 3.5-10.5 RED BLOOD CELL COUNT (BEAKER) (test ymau=486) 5.38 M/ L 4.63-6.08 HEMOGLOBIN (BEAKER) (test dsgy=822) 16.4 GM/DL 13.7-17.5 HEMATOCRIT (BEAKER) (test brsq=001) 48.1 % 40.1-51.0 MEAN CORPUSCULAR VOLUME (BEAKER) (test vsig=059) 89.4 fL 79.0-92.2 MEAN CORPUSCULAR HEMOGLOBIN (BEAKER) (test ebmx=696) 30.5 pg 25.7-32.2 MEAN CORPUSCULAR HEMOGLOBIN CONC (BEAKER) (test hvgz=919) 34.1 GM/DL 32.3- 36.5 RED CELL DISTRIBUTION WIDTH (BEAKER) (test mmrn=460) 11.9 % 11.6-14.4 PLATELET COUNT (BEAKER) (test myuj=875) 208 K/CU MM 150-450 MEAN PLATELET VOLUME (BEAKER) (test mzkw=111) 10.6 fL 9.4-12.4 NUCLEATED RED BLOOD CELLS (BEAKER) (test edvi=952) 0 /100 WBC 0-0 NEUTROPHILS RELATIVE PERCENT (BEAKER) (test ihyw=017) 91 % LYMPHOCYTES RELATIVE PERCENT (BEAKER) (test dpli=509) 8 % MONOCYTES RELATIVE PERCENT (BEAKER) (test scoi=305) 1 % EOSINOPHILS RELATIVE PERCENT (BEAKER) (test jagk=185) 0 % BASOPHILS RELATIVE PERCENT (BEAKER) (test jgsh=869) 0 % NEUTROPHILS ABSOLUTE COUNT (BEAKER) (test vpjh=512) 6.94 K/ L 1.78-5.38 LYMPHOCYTES ABSOLUTE COUNT (BEAKER) (test cive=351) 0.58 K/ L 1.32-3.57 MONOCYTES ABSOLUTE COUNT (BEAKER) (test wtzs=516) 0.07 K/ L 0.30-0.82 EOSINOPHILS ABSOLUTE COUNT (BEAKER) (test xyrd=543) 0.00 K/ L 0.04-0.54 BASOPHILS ABSOLUTE COUNT (BEAKER) (test nzbj=585) 0.02 K/ L 0.01-0.08 IMMATURE GRANULOCYTES-RELATIVE PERCENT (BEAKER) (test ydmx=6945) 0 % 0-1 PLATELET [id number] 22:09:00* Test Item Value Reference Range Comments PLATELET COUNT (BEAKER) (test tpjg=436) 208 K/CU MM 150-450 CHEST SINGLE (PORTABLE)2017-11-08 15:42:00 [place] [id number] Patient Name: PREMA BREWER MR #: [id number] : 1950 Age/Sex: 67/M Req #: [id number] Adm Physician: Ordered by: YESI CRUZ 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 COMPARISON: None. INDICATIONS: CHEST PAIN RIGHT TO LEFT SIDE FINDINGS: Lines/tubes: None. Lungs: The lungs are well inflated and grossly clear. There is no evidence of pneumonia or pulmonary edema. Pleura: There is no pleural effusion or pneumothorax. Heart and mediastinum: Mild prominence of the cardiac silhouette, which may be partly due to portable AP projection. Pulmonary vasculature is normal. Bones: No acute bony abnormality. IMPRESSION: 1. No acute cardiopulmonary abnormalities. David Gonzales M.D. Dictated by: David Gonzales M.D. on 11/08/2017 at 15: 42 Electronically approved by: David Gonzales M.D. on 11/08/2017 at 15:42 Dictated By: DAVID GONZALES MD [id number] Transcribed By: ZOEY on 11/08/17 1542 COPY TO: YESI CRUZ NP
--- OUTSIDE RECORDS SUMMARY | 2018-01-05 02:48 | XMS REPORT | Clinical Summary ---
Author Author LOUIE [facility] Address Unknown Phone Unavailable Care Team Providers Care Shoe Cutter Name Role Phone PCP Unavailable Allergies Active Allergy Reactions Severity Noted Date Comments Codeine 11/09/2017 Iodine And Iodide 11/09/2017 Containing Products Current Medications Prescription Sig. Disp. Refills Start End Date Status Date SINGULAIR 10 mg tablet Take 10 mg by mouth as 09/29/19 Active needed . 18 sAXagliptin (ONGLYZA) 5 Take 2.5 mg by mouth Active mg Tab daily. atorvastatin (LIPITOR) 80 Take 1 tablet (80 mg 30 tablet 0 11/20/19 11/20/19 Active MG tablet total) by mouth daily. 18 19 lisinopril Take 1 tablet (2.5 mg 30 tablet 0 11/20/19 11/20/19 Active (PRINIVIL,ZESTRIL) 2.5 MG total) by mouth daily. 18 19 tablet metoprolol (TOPROL-XL) 50 Take 1 tablet (50 mg 60 tablet 0 11/19/19 11/19/19 Active MG 24 hr tablet total) by mouth 2 (two) 18 19 times daily. furosemide (LASIX) 20 MG Take 1 tablet (20 mg 20 tablet 0 11/20/19 11/20/19 Active tablet total) by mouth daily. 18 19 aspirin 81 MG EC tablet Take 1 tablet (81 mg 30 tablet 0 11/20/19 Active total) by mouth daily. 18 19 nitroglycerin (NITROSTAT) Put 1 pill under tongue 90 tablet 0 11/19/19 Active 0.4 MG SL tablet every 5min as needed for 18 19 chest pain.No more than 3 doses in 15min.. acetaminophen (TYLENOL) Take 500 mg by mouth Active 500 MG tabletIndications: every 6 (six) hours as Post-operative state needed for Pain. terazosin (HYTRIN) 5 MG Take 5 mg by mouth daily. 10/26/19 11/19/19 Discontin capsule 18 18 ued rosuvastatin (CRESTOR) 10 Take 10 mg by mouth 10/05/19 11/19/19 Discontin MG tablet daily. 18 18 ued atenolol (TENORMIN) 100 Take 100 mg by mouth 09/29/19 11/19/19 Discontin MG tablet daily. 18 18 ued amLODIPine (NORVASC) 5 MG Take 5 mg by mouth 2 09/29/19 11/19/19 Discontin tablet (two) times daily . 18 18 ued Active Problems Problem Noted Date Volume overload 11/15/2017 Pulmonary edema 11/15/2017 Type 2 diabetes mellitus ([facility]) 11/14/2017 Thrombocytopenia ([facility]) 11/14/2017 NSTEMI (non-ST elevated myocardial infarction) ([facility]) 11/09/2017 Acute blood loss as cause of postoperative anemia Metabolic acidosis Respiratory acidosis Hyperlipidemia, unspecified hyperlipidemia type Essential hypertension Acute respiratory insufficiency Encounters Date Type Specialty Care Team Description 12/01/2017 Office Visit Cardiology Katiana Vasques, Post- operative state (Primary Dx) 11/11/2017 Procedure Pass 11/11/2017 Surgery Katiana Vasques, BYPASS,AORTO CORONARY TIFFANY/SVG 11/10/2017 Anesthesia Ernesto Solomon, AA Event 11/10/2017 Orders Only General Internal Medicine 11/09/2017 Hospital Cardiology Esvin Puckett, NSTEMI (non-ST elevated - Encounter MD myocardial infarction) 11/18/2017 Heaven Duarte MD ([facility]) (Primary Dx);Avila Brush MD angina pectoris ([facility]);Meliton Saucedo MD (shortness of breath);Ischemic cardiomyopathy;Hypertensi on, unspecified type;Hyperlipidemia, unspecified hyperlipidemia type;Coronary artery disease of [place] heart with stable angina pectoris, unspecified vessel or lesion type ([facility]);S/P CABG x 4;Postoperative cardiogenic shock, initial encounter ([facility]);Shock circulatory ([facility]) after 11/17/2016 Social History Tobacco Use Types Packs/Day Years Used Date Never Smoker Smokeless Tobacco: Never Used Alcohol Use Drinks/Week oz/Week Comments Yes Occasional Sex Assigned at Date Recorded Not on file Last Filed Vital Signs Vital Sign Reading Time Taken Blood Pressure 136/80 12/01/2017 10:53 AM CDT Pulse 90 12/01/2017 10:53 AM CDT Temperature 36.3 C (97.4 F) 12/01/2017 10:53 AM CDT Respiratory Rate 14 12/01/2017 10:53 AM CDT Oxygen Saturation 100% 12/01/2017 10:53 AM CDT Inhaled Oxygen - - Concentration Weight 88.9 kg (196 lb) 12/01/2017 10:53 AM CDT Height 177.8 cm (5' 10") 12/01/2017 10:53 AM CDT Body Mass Index 28.12 12/01/2017 10:53 AM CDT Plan of Treatment Health Maintenance Due Date Last Done Comments INFLUENZA VACCINE 01/02/2018 Implants Implanted Type Area Corner Cutter Machine Operator Device Expiration Model / Identifier Date Serial / Lot Sternal Zipfix Ndl Strl Cardiovasc SYNTHES:SYNTHES 02/01/2022 [id number]. [id number] - Sn/A [facility] .20S / Implanted: Qty: 1 on 11/11/2017 by N/A / Katiana Vasques MD [id number] Procedures Procedure Name Priority Date/Time Associated Diagnosis Comments ENDOSCOPIC HARVEST,VEIN 11/11/2017 Coronary artery disease 10:16 AM CDT involving [place] heart with angina pectoris, unspecified vessel or lesion type (HCC) BYPASS,AORTO CORONARY 11/11/2017 Coronary artery disease TIFFANY/SVG 10:16 AM CDT involving [place] heart with angina pectoris, unspecified vessel or lesion type (HCC) after 11/17/2016 Results * EKG-SCANNED (11/21/2017 3:10 PM) * VASCULAR DIAGRAM -SCAN (11/21/2017 3:10 PM) * RHYTHM STRIP - SCAN (11/21/2017 3:10 PM) * POC-Glucose meter (11/18/2017 12:24 PM) Only the most recent of 48 results within the time period is included. Component Value Ref Range POC-Glucose Meter 194 (H)Comment: TESTED AT [address] 70 - 110 mg /dL [facility] [id number] Specimen Performing Laboratory Blood [facility] [address] [address] * CBC (hemogram only) (11/18/2017 4:43 AM) Only the most recent of 8 results within the time period is included. Component Value Ref Range WBC 6.9 3.5 - 10.5 K/ L RBC 3.78 (L) 4.63 - 6.08 M/ L Hemoglobin 11.4 (L) 13.7 - 17.5 GM/DL Hematocrit 34.3 (L) 40.1 - 51.0 % MCV 90.7 79.0 - 92.2 fL MCH 30.2 25.7 - 32.2 pg MCHC 33.2 32.3 - 36.5 GM/DL RDW 12.4 11.6 - 14.4 % Platelets 188 150 - 450 K/CU MM MPV 11.1 9.4 - 12.4 fL nRBC 0 0 - 0 /100 WBC Specimen Performing Laboratory Blood - Arm, Left [address] [address] * Calcium, Ionized (11/18/2017 4:22 AM) Only the most recent of 8 results within the time period is included. Component Value Ref Range Calcium, Ion 0.93 (L) 1.12 - 1.27 mmol/L pH, Blood 7.58 Specimen Performing Laboratory Blood - Arm, Right [address] [address] * Phosphorus (11/18/2017 4:22 AM) Only the most recent of 7 results within the time period is included. Component Value Ref Range Phosphorus 3.2 2.3 - 4.7 mg/dL Specimen Performing Laboratory Blood - Arm, [address] [address] * Magnesium (11/18/2017 4:22 AM) Only the most recent of 9 results within the time period is included. Component Value Ref Range Magnesium 2.0 1.6 - 2.6 mg/dL Specimen Performing Laboratory Blood - Arm, [address] [address] * Basic Metabolic Panel (11/18/2017 4:22 AM) Only the most recent of 10 results within the time period is included. Component Value Ref Range Sodium 139 136 - 145 meq/L Potassium 3.6 3.5 - 5.1 meq/L Chloride 106 98 - 107 meq/L CO2 26 22 - 29 meq/L BUN 10 7 - 21 mg/dL Creatinine 0.96 0.57 - 1.25 mg/dL Glucose 130 (H) 70 - 105 mg/dL Calcium 9.0 8.4 - 10.2 mg/dL EGFR 78Comment: ESTIMATED GFR IS NOT ACCURATE mL/min/1.73 sq m CREATININE CLEARANCE IN PREDICTING GLOMERULAR FILTRATION RATE. ESTIMATED GFR IS NOT APPLICABLE FOR DIALYSIS PATIENTS. Specimen Performing Laboratory Blood - Arm, Right [place] [id number] * CBC with platelet count + automated diff (11/17/2017 4:10 AM) Only the most recent of 6 results within the time period is included. Component Value Ref Range WBC 6.0 3.5 - 10.5 K/ L RBC 3.73 (L) 4.63 - 6.08 M/ L Hemoglobin 11.4 (L) 13.7 - 17.5 GM/DL Hematocrit 33.8 (L) 40.1 - 51.0 % MCV 90.6 79.0 - 92.2 fL MCH 30.6 25.7 - 32.2 pg MCHC 33.7 32.3 - 36.5 GM/DL RDW 12.2 11.6 - 14.4 % Platelets 167 150 - 450 K/CU MM MPV 11.1 9.4 - 12.4 fL nRBC 0 0 - 0 /100 WBC % Neutros 68 % % Lymphs 15 % % Monos 11 % % Eos 4 % % Baso 1 % # Neutros 4.12 1.78 - 5.38 K/ L # Lymphs 0.93 (L) 1.32 - 3.57 K/ L # Monos 0.69 0.30 - 0.82 K/ L # Eos 0.22 0.04 - 0.54 K/ L # Baso 0.04 0.01 - 0.08 K/ L Immature 1 0 - 1 % Granulocytes-Relative Specimen Performing Laboratory Blood [address] [address] * CBC with platelet count + automated diff (11/17/2017 4:10 AM) Only the most recent of 6 results within the time period is included. Specimen Performing Laboratory Blood Narrative The following orders were created for panel order CBC with platelet count + automated diff. Procedure Abnormality Status --------- - ------ CBC with platelet count ...[[id number]]AbnormalFinal result Please view results for these tests on the individual orders. * EKG 12 lead (11/16/2017 6:25 AM) Only the most recent of 5 results within the time period is included. Specimen Performing Laboratory delicious MUSE Narrative Ventricular Rate 93 BPM Atrial Rate 93 BPM P-R Interval 162 ms QRS Duration 94 ms Q-T Interval 392 ms QTC Calculation(Bazett) 487 ms P [place] 35 degrees R [place] 2 degrees T [place] 35 degrees Normal sinus rhythm Anterior infarct (cited on or before 16-NOV-2017) Suspect old inferior infarct 10 NOV 2017 Nonspecific T wave abnormality Prolonged QT When compared with ECG of 15-NOV-2017 05:24, QT has lengthened Confirmed by MD BON, ISABELLA ([id number]) on 11/16/2017 6:54:41 AM Procedure Note Interface, External Ris In - 11/16/2017 6:54 AM CDT Ventricular Rate 93 BPM Atrial Rate 93 BPM P-R Interval 162 ms QRS Duration 94 ms Q-T Interval 392 ms QTC Calculation(Bazett) 487 ms P [place] 35 degrees R [place] 2 degrees T [place] 35 degrees Normal sinus rhythm Anterior infarct (cited on or before 16-NOV-2017) Suspect old inferior infarct 10 NOV 2017 Nonspecific T wave abnormality Prolonged QT When compared with ECG of 15-NOV-2017 05:24, QT has lengthened Confirmed by MD BON, ISABELLA ([id number]) on 11/16/2017 6:54:41 AM * XR chest 1 view portable / bedside (11/15/2017 7:15 AM) Only the most recent of 7 results within the time period is included. Specimen Performing Laboratory delicious RIS Narrative FINAL REPORT Chest one view INDICATION: Pneumothorax COMPARISON: [...] clavicular fracture is noted. Signed: Rajiv Santos MD Report Verified Date/Time:11/15/2017 08:05:47 Reading Location: [facility] Radiology Reading Room Procedure Note Interface, External Ris In - 11/15/2017 10:41 AM CDT FINAL REPORT Chest one view INDICATION: Pneumothorax COMPARISON: [...] clavicular fracture is noted. Signed: Rajiv Santos MD Report Verified Date/Time: 11/15/2017 08:05:47 Reading Location: [facility] Radiology Reading Room * Potassium (11/13/2017 12:38 PM) Only the most recent of 3 results within the time period is included. Component Value Ref Range Potassium 4.0 3.5 - 5.1 meq/L Specimen Performing Laboratory Blood [address] [address] Narrative Check Serum Potassium level 2 hours after oral potassium replacement completed or 30 min after intravenous potassium replacement. * Glucose (11/12/2017 7:09 PM) Component Value Ref Range Glucose 122 (H) 70 - 105 mg/dL Specimen Performing Laboratory Blood - Line, Arterial [address] [address] Narrative PRN - repeat glucose levels every 1 hour or as specified by insulin titration orders until glucose level is less than 450 mg/dL * TRANSFUSION SERVICE REPORT - SCAN (11/12/2017 6:03 PM) Only the most recent of 2 results within the time period is included. * ECHOCARDIOGRAM REPORT - SCAN (11/12/2017 12:30 PM) Only the most recent of 2 results within the time period is included. * RRL Critical Labs (ABG,NA,K,H&H,GLU) (11/12/2017 12:15 PM) Only the most recent of 13 results within the time period is included. Specimen Performing Laboratory Blood, Arterial Narrative The following orders were created for panel order L Critical Labs (ABG,NA,K,H& H,GLU). Procedure Abnormality Status --------- - ------ Blood gas, arterial[[id number]]Abnormal Final result Sodium Na-Stat Lab[[id number]] Abnormal Final result Potassium-Stat Lab[[id number]] Normal Final result Glucose-Stat Lab[[id number]] Abnormal Final result HGB/HCT (H&H)-Stat Lab[[id number]] Abnormal Final result Please view results for these tests on the individual orders. * Potassium-Stat Lab (11/12/2017 12:15 PM) Only the most recent of 13 results within the time period is included. Component Value Ref Range Potassium 4.1 3.6 - 5.5 meq/L Specimen Performing Laboratory Blood, Arterial - Line, [facility] Arterial [address] [place] [address] * Sodium Na-Stat Lab (11/12/2017 12:15 PM) Only the most recent of 13 results within the time period is included. Component Value Ref Range Sodium 149 (H) 135 - 148 meq/L Specimen Performing Laboratory Blood, Arterial - Line, [facility] Arterial [address] [place] [address] * Glucose-Stat Lab (11/12/2017 12:15 PM) Only the most recent of 13 results within the time period is included. Component Value Ref Range Glucose 128 (H) 70 - 110 mg/dL Specimen Performing Laboratory Blood, Arterial - Line, [facility] Arterial [address] [place] [address] * HGB/HCT (H&H)-Stat Lab (11/12/2017 12:15 PM) Only the most recent of 13 results within the time period is included. Component Value Ref Range Hemoglobin 11.1 (L) 13.0 - 16.8 g/dL Hematocrit 33.0 (L) 40.0 - 50.0 % Specimen Performing Laboratory Blood, Arterial - Line, [facility] Arterial [address] [place] [address] * Blood gas, arterial (11/12/2017 12:15 PM) Only the most recent of 16 results within the time period is included. Component Value Ref Range pH, Arterial 7.42 7.35 - 7.45 pCO2, Arterial 44 35 - 45 mmHg pO2, Arterial 73 (L) 80 - 90 mmHg O2 Sat, Arterial 94.9 (L) 96.0 - 97.0 % HCO3, Arterial 28 21 - 29 mmol/L Base Excess, Arterial 3.0 -2.0 - 3.0 mmol/L Patient Temperature 36.9 C FIO2 50.0 % Specimen Performing Laboratory Blood, Arterial - Line, [facility] Arterial [address] [place] [address] * Prepare plasma (11/12/2017 6:43 AM) Component Value Ref Range Unit ABO O Neg UNIT NUMBER [id number] Status CANCELED Blood Bank Product FFP PRODUCT CODE M6847A56 Unit ABO O Neg UNIT NUMBER [id number] Status RETURNED FROM ISSUE Blood Bank Product FFP PRODUCT CODE [id number] Unit ABO O Pos UNIT NUMBER [id number] Status RETURNED FROM ISSUE Blood Bank Product FFP PRODUCT CODE [id number] Unit ABO O Pos UNIT NUMBER [id number] Status RETURNED FROM ISSUE Blood Bank Product FFP PRODUCT CODE [id number] Unit ABO O Pos UNIT NUMBER [id number] Status RETURNED FROM ISSUE Blood Bank Product FFP PRODUCT CODE O0504K06 Specimen Performing Laboratory [place] * Lactic acid, arterial, whole blood (11/12/2017 4:45 AM) Only the most recent of 4 results within the time period is included. Component Value Ref Range Lactate, Art 3.5 (H) 0.5 - 2.2 mmol/L Specimen Performing Laboratory Blood, Arterial [address] [address] Narrative Effective 08/06/2015: Units/Reference Range Change New: 0.5-2.2 mmol/LPrevious: 5-20 mg/dL * 2D Echo W/Doppler(CW/PW/Color) (11/12/2017 3:03 AM) Only the most recent of 2 results within the time period is included. Component Value Ref Range Ejection Fraction Specimen Performing Laboratory [facility] ECHO HEART[facility] MKCKESSON CPACS Narrative Transthoracic Echocardiography Report (TTE) Demographics Patient Name Fadia BREWERte of Study 11/12/2017 [id number] Male Visit Number [id number] Room Number 2C51 Number Date of Birth1950Referring Physician Bri Melgar Age67 year(s)Sales Developer Colin Miles [facility] AnalystAriadna Interpreting Suman Watkins Physician Procedure Type of Study TTE procedure:2DECHO W DOPPLER(CW/PW/COLOR) (STAT) Indications:Post Op and Hypotension or hemodynamic instability. Clinical History NSTEMI, HLD, HTN, Obesity HGB 11.2 HCT 33.0 % ACB X4 8. Contrast Medium: Definity. Height: 70 inches Weight: 88.45 kg (195 lbs) BSA: 2.06 m^2 BMI: 27.98 kg/m^2 HR: 110 bpm BP: 98/64 mmHg Summary LV endocardium is well visualized with IV ultrasound enhancing agent. The left ventricle is chamber size (by vol index) is normal (male - LVED vol - 34-74ml/m2). Normal LV wall thickness. The following segment(s) appear akinetic: mid to distal septum and apex . All of the LV segments contract normally . LVEF by Lea's method of disk assessment is normal (55-60%) . Degree of diastolic dysfunction (LAP assessment) is inconclusive due to tachycardia . Estimation of LV systolic function is less reliable in the presence of tachycardia. A trace of tricuspid regurgitation. Estimated peak systolic PA pressure is 25-30 mmHg . The inferior vena cava size is normal . The estimated RA pressure by IVC dynamics 5-10mmHg . Previous Study In comparison with the prior exam on 11/10/2017 there are no significant changes. Signature Findings Left Ventricle LV endocardium is well visualized with IV ultrasound enhancing agent. The left ventricle is chamber size (by vol index) is normal (male - LVED vol - 34- 74ml/m2). Normal LV wall thickness. The following segment(s) appear akinetic: mid to distal septum and apex . All of the LV segments contract normally . LVEF by Lea's method of disk assessment is normal (55-60%) . Degree of diastolic dysfunction (LAP assessment) is inconclusive due to tachycardia . Estimation of LV systolic function is less reliable in the presence of tachycardia. Left AtriumLA size is normal (16-34 ml/m2) . Right VentricleRV chamber size is normal . Global RV systolic function is low normal . Right Atrium RA size is normal. Aortic Valve Mild AoV cusp thickening. Mild AoV cusp calcification. AoV calcification primarily involves the non- coronary cusp(s). Mitral Valve Mild MV leaflet thickening. Trace mitral regurgitation. Tricuspid ValveTV is partially visualized. A trace of tricuspid regurgitation. Estimated peak systolic PA pressure is 25-30 mmHg . Pulmonic Valve Normal PV structure and function by limited views and Doppler. AortaAortic root size (SInus of Valsalva diameter) is normal . PericardiumAn echo lucent space is noted consistent with prominent pericardial fat pad. IVC/SVC/PA/PV/PleuralThe inferior vena cava size is normal . The estimated RA pressure by IVC dynamics 5-10mmHg . Chambers/Structures Left Atrium LA Volume: 52.84 ml LA Area: 15.92 cm^2 LA Vol. Index: 26 ml/m^2 Left Ventricle LVIDd: 4.31 cm LVIDs: 2.58 cm LV Septum Diastolic: 0.98 cm LV PW Diastolic: 1.07 cmLV FS: 40.1 % LVEDV Lea's:68.02 ml LVESV Lea's:29.39 mlLVEDVI: 33 ml/m ^2 LVEF Lea's: 56.8 %LVESVI: 14 ml /m^2 LVOT Diameter: 2.13 cm Right Atrium RA Vol. (Sngl Plane): 45.79 ml Right Ventricle RV Systolic Pressure: 26.22 mmHg TAPSE: 1.75 cm Aorta Ao Root S of Nataly.: 3.19 cm Doppler/Quantitative Measurements LVOT Peak Velocity: 0.99 m/s Peak Gradient: 3.91 mmHg Mean Velocity: 0.64 m/s Mean Gradient: 1.98 mmHg LVOT Diameter: 2.13 cmLVOT VTI: 17.03 cm LVOT Area: 3.56 cm^2LVOT SV:60.65 ml LVOT CO: 6.67 l/min LVOT CI: 3.24 l/min/m^2 RVOT RVOT VTI (PW): 11.06 cm Tricuspid Valve Estimated RAP: 5 mmHg TR Velocity: 2.3 m/s TR Gradient: 21.22 mmHg Pulmonic Valve Estimated PASP: 26.22 mmHg Procedure Note Interface, External Ris In - 11/12/2017 11:53 AM CDT Transthoracic Echocardiography Report (TTE) Demographics Patient Name TERE BREWER Date of Study 11/12/2017 Gender Male Visit Number [id number] Race Room Number 2C51 Number Date of 1950 Referring Physician Bri Melgar Age 67 year(s) Sales Developer Colin Miles RDCS Glaze Mixer Armida Interpreting Suman Watkins Physician Procedure Type of Study TTE procedure:2DECHO W DOPPLER(CW/PW/COLOR) (STAT) Indications:Post Op and Hypotension or hemodynamic instability. Clinical History NSTEMI, HLD, HTN, Obesity HGB 11.2 HCT 33.0 % ACB X4 8.10.2018 Contrast Medium: Definity. Height: 70 inches Weight: 88.45 kg (195 lbs) BSA: 2.06 m^2 BMI: 27.98 kg/m^2 HR: 110 bpm BP: 98/64 mmHg Summary LV endocardium is well visualized with IV ultrasound enhancing agent. The left ventricle is chamber size (by vol index) is normal (male - LVED vol - 34-74ml/m2). Normal LV wall thickness. The following segment(s) appear akinetic: mid to distal septum and apex . All of the LV segments contract normally . LVEF by Lea's method of disk assessment is normal (55-60%) . Degree of diastolic dysfunction (LAP assessment) is inconclusive due to tachycardia . Estimation of LV systolic function is less reliable in the presence of tachycardia. A trace of tricuspid regurgitation. Estimated peak systolic PA pressure is 25-30 mmHg . The inferior vena cava size is normal . The estimated RA pressure by IVC dynamics 5-10mmHg . Previous Study In comparison with the prior exam on 11/10/2017 there are no significant changes. Signature Findings Left Ventricle LV endocardium is well visualized with IV ultrasound enhancing agent. The left ventricle is chamber size (by vol index) is normal (male - LVED vol - 34-74ml/m2). Normal LV wall thickness. The following segment(s) appear akinetic: mid to distal septum and apex . All of the LV segments contract normally . LVEF by Lea's method of disk assessment is normal (55-60%) . Degree of diastolic dysfunction (LAP assessment) is inconclusive due to tachycardia . Estimation of LV systolic function is less reliable in the presence of tachycardia. Left Atrium LA size is normal (16-34 ml/m2) . Right Ventricle RV chamber size is normal . Global RV systolic function is low normal . Right Atrium RA size is normal. Aortic Valve Mild AoV cusp thickening. Mild AoV cusp calcification. AoV calcification primarily involves the non- coronary cusp(s). Mitral Valve Mild MV leaflet thickening. Trace mitral regurgitation. Tricuspid Valve TV is partially visualized. A trace of tricuspid regurgitation. Estimated peak systolic PA pressure is 25-30 mmHg . Pulmonic Valve Normal PV structure and function by limited views and Doppler. Aorta Aortic root size (SInus of Valsalva diameter) is normal . Pericardium An echo lucent space is noted consistent with prominent pericardial fat pad. IVC/SVC/PA/PV/Pleural The inferior vena cava size is normal . The estimated RA pressure by IVC dynamics 5-10mmHg . Chambers/Structures Left Atrium LA Volume: 52.84 ml LA Area: 15.92 cm^2 LA Vol. Index: 26 ml/m^2 Left Ventricle LVIDd: 4.31 cm LVIDs: 2.58 cm LV Septum Diastolic: 0.98 cm LV PW Diastolic: 1.07 cm LV FS: 40.1 % LVEDV Lea's:68.02 ml LVESV Lea's:29.39 ml LVEDVI: 33 ml/m^2 LVEF Lea's: 56.8 % LVESVI: 14 ml/m^2 LVOT Diameter: 2.13 cm Right Atrium RA Vol. (Sngl Plane): 45.79 ml Right Ventricle RV Systolic Pressure: 26.22 mmHg TAPSE: 1.75 cm Aorta Ao Root S of Nataly.: 3.19 cm Doppler/Quantitative Measurements LVOT Peak Velocity: 0.99 m/s Peak Gradient: 3.91 mmHg Mean Velocity: 0.64 m/s Mean Gradient: 1.98 mmHg LVOT Diameter: 2.13 cm LVOT VTI: 17.03 cm LVOT Area: 3.56 cm^2 LVOT SV:60.65 ml LVOT CO: 6.67 l/min LVOT CI: 3.24 l/min/m^2 RVOT RVOT VTI (PW): 11.06 cm Tricuspid Valve Estimated RAP: 5 mmHg TR Velocity: 2.3 m/s TR Gradient: 21.22 mmHg Pulmonic Valve Estimated PASP: 26.22 mmHg * Oxygen saturation, measured (11/12/2017 2:17 AM) Only the most recent of 2 results within the time period is included. Component Value Ref Range O2 Saturation (Measured) 76.2 % Specimen Performing Laboratory Blood [address] [address] * aPTT (11/12/2017 2:17 AM) Only the most recent of 6 results within the time period is included. Component Value Ref Range PTT 53.4 (H) 22.5 - 36.0 seconds Specimen Performing Laboratory Blood [address] [address] * Prothrombin time/INR (11/12/2017 2:17 AM) Only the most recent of 3 results within the time period is included. Component Value Ref Range Protime 17.5 (H) 11.7 - 14.7 seconds INR 1.4 <=5.9 Specimen Performing Laboratory Blood [address] [address] Narrative RECOMMENDED COUMADIN/WARFARIN INR THERAPY RANGES STANDARD DOSE: 2.0 - 3.0 Includes: PROPHYLAXIS for venous thrombosis, systemic embolization; TREATMENT for venous thrombosis and/or pulmonary embolus. HIGH RISK: Target INR is 2.5-3.5 for patients with mechanical heart valves. * Fibrinogen (11/12/2017 2:17 AM) Only the most recent of 2 results within the time period is included. Component Value Ref Range Fibrinogen 226 225 - 434 mg/dl Specimen Performing Laboratory Blood [address] [address] * PT/aPTT (11/11/2017 8:33 PM) Only the most recent of 2 results within the time period is included. Component Value Ref Range Protime 17.6 (H) 11.7 - 14.7 seconds INR 1.4 <=5.9 PTT 25.7 22.5 - 36.0 seconds Specimen Performing Laboratory Blood [address] [address] Narrative RECOMMENDED COUMADIN/WARFARIN INR THERAPY RANGES STANDARD DOSE: 2.0 - 3.0 Includes: PROPHYLAXIS for venous thrombosis, systemic embolization; TREATMENT for venous thrombosis and/or pulmonary embolus. HIGH RISK: Target INR is 2.5-3.5 for patients with mechanical heart valves. * POC ACTIVATED CLOTTING TIME (11/11/2017 7:02 PM) Only the most recent of 8 results within the time period is included. Component Value Ref Range Activated Clotting Time 98Comment: TESTED AT [address] [place] [id number] Specimen Performing Laboratory [address] [address] * Thromboelastograph (TEG) (11/11/2017 6:49 PM) Component Value Ref Range TEG Activated Clotting 3.8 (L) 4.0 - 7.0 minutes Time TEG Fibrinogen Activity 64.6 61.0 - 73.0 degrees TEG Platelet Aggregation 58.1 55.0 - 65.0 MM TEG-H Activated Clotting 3.7 (L) 4.0 - 7.0 minutes Time TEG-H Fibrinogen Activity 69.4 61.0 - 73.0 degrees TEG-H Platelet 56.7 55.0 - 65.0 MM Aggregation Specimen Performing Laboratory Blood [address] [address] * Platelet count (11/11/2017 6:49 PM) Only the most recent of 2 results within the time period is included. Component Value Ref Range Platelets 104 (L) 150 - 450 K/CU MM Specimen Performing Laboratory Blood [address] [address] * MR cardiac without & with IV contrast (11/11/2017 10:03 AM) Specimen Performing Laboratory delicious RIS Narrative FINAL REPORT Cardiovascular MRI - Chest:11/11/2017 10:04 AM. Comparison:None available. Clinical History:67 years old Male with chest pain x 1 day, up-trending troponin (0.04, 0.1, 2.97). T wave inversions on ECG. He was treated with heparin gtt, LHC significant for 100% LAD, 80-90% LCX, diffuse 70% proximal-RCA, 90-95% distal RCA stenoses, LVEDP 18. Echo done showed LVEF 50-55%. He was transferred to [facility] ([facility]) for further care/CABG evaluation. Indication:This study is performed to assess myocardial damage, viability, and to quantitate left ventricular and valvular function. Technique:Leticia Achieva 1.5 Mary MRI scanner. * Turbo spin echo and gradient echo imaging for anatomic definition. * Dynamic cine imaging for cardiac chamber, wall-motion, and valvular analysis. * Flow quantification sequences for hemodynamics. * Delayed gadolinium-enhancement analysis (inversion recovery gradient echo sequence) after injection of gadolinium-chelate. RESULT: Potential study limitations:None. CHEST: The chest wall is unremarkable.The mediastinum appears normal.No significant adenopathy is identified.This study was not optimized to assess the lungs however, limited imaging reveals no gross abnormalities, except for a 1 cm heterogenous mass noted in the left lower lobe . The pulmonary arteries appear normal (main PA: 2.6 cm). The pericardium is unremarkable. VASCULAR: The aortic root is symmetric and normal in dimension. The sinotubular junction is preserved. The ascending thoracic aorta and aortic arch:Normal in course, caliber and contour, except for mild ectasia of the mid ascending thoracic aorta measuring 4.0 cm.The arch vessel branching pattern is normal.The imaged arch branch vessels are patent proximally. The descending thoracic aorta:Normal in course, caliber and contour. There is no acute aortic pathology, such as dissection, intramural hematoma, or contained rupture. CARDIAC CHAMBERS: The cardiac chambers have normal atrioventricular and ventriculoarterial concordance, as well as normal systemic and pulmonary venous return. Normal interatrial septumThe interventricular septum appears intact.The cardiac chamber sizes are notable for mild left atrial enlargement. Left Ventricle: The left ventricle is normal in size and shape, and has normal systolic function.There is mild asymmetricbasal septal hypertrophy, basal hamilton septum (1.2 cm). The remaining left ventricular myocardium is normal in thickness. There are regional wall motion abnormalities involving the mid to apical septal, apical inferior and LV apex, which are not significantly hypokinetic. The remaining myocardium has normal contractility.. Left ventricle: The left ventricle is normal in size and shape, and has normal systolic function. Quantitative left ventricular functional values are as follows: XDT=680 cc (normal 88-168 cc); EDVi=68 cc/m2 (normal 57-92 cc/m2). ESV=63 cc (normal 23-60 cc); ESVi=32 cc/m2 (normal 15-34 cc/m2). Stroke volume=73 cc (normal 58-114 cc); SVi=37 cc/m2 (normal 38-63 cc/m2). LVEF=54 % (normal 55-75%). Cardiac Output=4.8 l/min.;Cardiac Index=2.4 l/min/m2. LV yofk=833 gm (normal 72-144 cc); LVMi=64 gm/m2 (normal 48-77 gm/m2). Delayed-enhancement imaging reveals delayed-enhancement in an ischemic pattern.Specifically, subendocardial pattern involving the mid to apical septal, apical inferior and LV apex. No mural or apical left ventricular thrombus is identified. Scar score=13/68 (semi-quantitative scar assessment was performed on a standard 17-segments model as follows: 0=no scar, 1=1-25% transmurality, 2=26-50% transmurality, 3= 51-75% transmurality, 4=greater than 75%; total scar score is generated out of a maximum of 68 points). Transmurality index=2/17 (represents the number of segments with greater than or equal to 51% transmurality). Right Ventricle: The right ventricle is normal in size and shape, and has normal systolic function on qualitative assessment, where imaged. VALVES: The mitral valve is mildly thickened. There is mild imaged mitral regurgitation.The papillary muscles are normal in size.There is no abnormal thickening or attachments. Integrating LV volumetric and aortic flow quantification data reveals: *Quantitative mitral regurgitant volume: 14 cc/beat *Quantitative mitral regurgitant fraction: 19 % The aortic valve is trileaflet and mild to moderately thickened. There is trivial aortic regurgitation. Flow quantification through the ascending aorta: *Forward volume: 59 cc/beat *Reverse volume: 3 cc/beat *Net forward volume: 56 cc/beat *Aortic regurgitant fraction: 5 % The tricuspid valve is mildly thickened.There is mild imaged tricuspid regurgitation. Flow quantification sequences through the SVC and right upper lobe pulmonary vein reveal normal flow patterns consistent with normal right and normal left atrial pressures. ABDOMEN: Limited imaging through the upper abdomen reveals no abnormalities of the imaged organs. IMPRESSION: 1. The left ventricle is normal in size and shape, and has normal systolic function (LVEF=54 %; LVEDVi=68 cc/m2).There is thinning and severe hypokinesis of mid to apical septal, apical inferior and LV apex. There is mild asymmetric basal septal hypertrophy (basal hamilton septum (1.2 cm). The remaining left ventricular myocardium is normal in thickness. * Delayed-enhancement imaging reveals delayed-enhancement in an ischemic pattern.Specifically, subendocardial pattern involving the mid anteroseptal, inferoseptal and apical inferior septal. Transmural pattern involving apical septum and LV apex in the distal LAD distribution.No mural or apical left ventricular thrombus is identified. *Transmurality index=2/17 (represents the number of segments with greater than or equal to 51% transmurality). Scar score=13/68. 2. The right ventricle is normal in [...] by dedicated CT scan. Signed: Darron Davison MD Report Verified Date/Time:11/12/2017 12:08:11 Reading Location: [place] [address] Cardiology MRI Procedure Note Interface, External Ris In - 11/12/2017 12:10 PM CDT FINAL REPORT Cardiovascular MRI - Chest: 11/11/2017 10:04 [...] showed LVEF 50-55%. He was transferred to [facility] for further care/CABG evaluation. Indication: This study is performed to assess myocardial damage, viability, and to quantitate left ventricular and valvular function. Technique: Leticia Achieva 1.5 Mary MRI scanner. * Turbo spin echo and gradient echo imaging for anatomic definition. * Dynamic cine imaging for cardiac chamber, wall-motion, and valvular analysis. * Flow quantification sequences for hemodynamics. * Delayed gadolinium-enhancement analysis (inversion recovery gradient echo [...] PA: 2.6 cm). The pericardium is unremarkable. VASCULAR: The aortic root is symmetric and normal in [...] dissection, intramural hematoma, or contained rupture. CARDIAC CHAMBERS: The cardiac chambers have normal atrioventricular and ventriculoarterial concordance, as well as normal systemic and pulmonary venous return. Normal interatrial septum The interventricular septum appears intact. The cardiac chamber sizes are notable for mild left atrial enlargement. Left Ventricle: The left ventricle is normal in size [...] The remaining myocardium has normal contractility.. Left ventricle: The left ventricle is normal in size and shape, and has normal systolic function. Quantitative left ventricular functional values are as follows: SCE=116 cc (normal 88-168 cc); EDVi=68 cc/m2 (normal 57-92 cc/m2). ESV=63 cc (normal 23-60 cc); ESVi=32 cc/m2 (normal 15-34 cc/m2). Stroke volume=73 cc (normal 58-114 cc); SVi=37 cc/m2 (normal 38-63 cc/m2). LVEF=54 % (normal 55-75%). Cardiac Output=4.8 l/min.; Cardiac Index=2.4 l/min/m2. LV xird=912 gm (normal 72-144 cc); LVMi=64 gm/m2 (normal 48-77 gm/m2). Delayed-enhancement imaging reveals delayed-enhancement in an ischemic pattern. Specifically, subendocardial pattern involving the mid to apical septal, apical inferior and LV apex. No mural or apical left ventricular thrombus is identified. Scar score=13/ (semi-quantitative scar assessment was performed on a standard 17-segments model as follows: 0=no scar, 1=1-25% transmurality, 2=26-50% transmurality, 3= 51-75% transmurality, 4=greater than 75%; total scar score is generated out of a maximum of 68 points). Transmurality index=2/17 (represents the number of segments with greater than or equal to 51% transmurality). Right Ventricle: The right ventricle is normal in size and shape, and has normal systolic function on qualitative assessment, where imaged. VALVES: The mitral valve is mildly thickened. There is mild imaged mitral regurgitation. The papillary muscles are normal in size. There is no abnormal thickening or attachments. Integrating LV volumetric and aortic flow quantification data reveals: *Quantitative mitral regurgitant volume: 14 cc/beat *Quantitative mitral regurgitant fraction: 19 % The aortic valve is trileaflet and mild to moderately thickened. There is trivial aortic regurgitation. Flow quantification through the ascending aorta: *Forward volume: 59 cc/beat *Reverse volume: 3 cc/beat *Net forward volume: 56 cc/beat *Aortic regurgitant fraction: 5 % The tricuspid valve is mildly thickened. There is mild imaged tricuspid regurgitation. Flow quantification sequences through the SVC and right upper lobe pulmonary vein reveal normal flow patterns consistent with normal right and normal left atrial pressures. ABDOMEN: Limited imaging through the upper abdomen reveals no abnormalities of the imaged organs. IMPRESSION: 1. The left ventricle is normal in size and shape, and has normal systolic function (LVEF=54 %; LVEDVi=68 cc/m2). There is thinning and [...] than or equal to 51% transmurality). Scar score=13/68. 2. The right ventricle is normal in [...] by dedicated CT scan. Signed: Darron Davison MD Report Verified Date/Time: 11/12/2017 12:08:11 Reading Location: [place] [address] Cardiology MRI * Troponin I (11/10/2017 5:11 PM) Only the most recent of 4 results within the time period is included. Component Value Ref Range Troponin I 5.36 (HH) 0.00 - 0.03 ng/mL Specimen Performing Laboratory Blood - Arm, [place] [address] Narrative Troponin I (TnI) levels must be interpreted [...] failure, acidosis, acute neurological disease, and persistent tachyarrhythmia. * Carotid doppler bilateral (11/10/2017 1:46 PM) Component Value Ref Range Ejection Fraction Specimen Performing Laboratory [facility] ECHO HEARTLAB MKCKESSON CPACS Impressions Right Impression 1. There is <50% diameter reduction (approximately 18% by 2-D measurement) in the internal carotid artery with a peak velocity of 82/12 cm/sec and heterogeneous plaque. 2. There is non-occluding plaque in the external carotid artery. 3. There is non-occluding plaque in the common carotid artery. 4. The vertebral artery flow is antegrade and normal. 5. The subclavian artery is within normal limits where visualized. Left Impression 1. There is <50% diameter reduction (approximately 15% by 2-D measurement) in the internal carotid artery with a peak velocity of 76/16 cm/sec and heterogeneous plaque. 2. There is non-occluding plaque in the external carotid artery. 3. There is non-occluding plaque in the common carotid artery. 4. The vertebral artery flow is antegrade and normal. 5. The subclavian artery is within normal limits where visualized. Conclusions Summary Carotid duplex scanning and color flow imaging were performed bilaterally. The arteries were adequately visualized. The bilateral internal carotid arteries had <50% hemodynamically insignificant stenosis (approximately 18% by 2-D measurement on the right, approximately 15% by 2-D measurement on the left) with heterogeneous plaque. The vertebral artery flow was antegrade and normal bilaterally. Signature Velocities are measured in cm/s ; Diameters are measured in cm Carotid Right Measurements + +----+----+-----+ + + + !Location !PSV !EDV !Angle!%Stenosis 2D!%Stenosis Doppler! Tortuosity ! + +----+----+-----+ + + + !Prox CCA !75!11.7!60 !! ! ! + +----+----+-----+ + + + !Dist CCA !87.4!14.7!60 !! ! ! + +----+----+-----+ + + + !Prox ICA !81.5!12.3!60 !18!<50% ! ! + +----+----+-----+ + + + !Dist ICA !64.5!20.5!60 !! ! ! + +----+----+-----+ + + + !Prox ECA !90.9!12.9!60 !! ! ! + +----+----+-----+ + + + !Vertebral!30.5!5 !60 !! ! ! + +----+----+-----+ + + + !Prox Subclavian!106 !0 !60 !! ! ! + +----+----+-----+ + + + - There is antegrade vertebral flow noted on the right side. - Additional Measurements:ICAPSV/CCAPSV 0.93.ICAEDV/CCAEDV 1.75. Carotid Left Measurements + +----+----+-----+ + + + !Location !PSV !EDV !Angle!%Stenosis 2D!%Stenosis Doppler! Tortuosity ! + +----+----+-----+ + + + !Prox CCA !97.4!19.6!60 !! ! ! + +----+----+-----+ + + + !Dist CCA !103 !17.3!60 !! ! ! + +----+----+-----+ + + + !Prox ICA !75!18.8!60 !15!<50% ! ! + +----+----+-----+ + + + !Dist ICA !76.2!16.4!60 !! ! ! + +----+----+-----+ + + + !Prox ECA !90.4!7.07!60 !! ! ! + +----+----+-----+ + + + !Vertebral!52.8!12.9!60 !! ! ! + +----+----+-----+ + + + !Prox Subclavian!114 !0 !60 !! ! ! + +----+----+-----+ + + + - There is antegrade vertebral flow noted on the left side. - Additional Measurements:ICAPSV/CCAPSV 0.74.ICAEDV/CCAEDV 0.96. 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 InterpretingMartita Banks RVT, Ranjeet CASTANO, RICCARDO Procedure Type of Study: Cerebral: Carotid, CAROTID DOPPLER, BILATERAL. Indications for Study:CAD pre op eval for CABG. Patient Status:TODAY. Study Location:Vascular Lab. Technical Quality:Adequate visualization. Risk Factors History of Disease + + + + !Diagnosis !Date !Comments ! + + + + !CAD ! ! ! 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 Interpreting Martita Banks RVT, GABRIEL Physician , RICCARDO Procedure Type of Study: Cerebral: Carotid, CAROTID DOPPLER, BILATERAL. Indications for Study:CAD pre op eval for CABG. Patient Status:TODAY. Study Location:Vascular Lab. Technical Quality:Adequate visualization. Risk Factors History of Disease + + + + !Diagnosis !Date !Comments ! + + + + !CAD ! ! ! + + + + Impressions Right Impression 1. There is <50% diameter reduction (approximately 18% by 2-D measurement) in the internal carotid artery with a peak velocity of 82/12 cm/sec and heterogeneous plaque. 2. There is non-occluding plaque in the external carotid artery. 3. There is non-occluding plaque in the common carotid artery. 4. The vertebral artery flow is antegrade and normal. 5. The subclavian artery is within normal limits where visualized. Left Impression 1. There is <50% diameter reduction (approximately 15% by 2-D measurement) in the internal carotid artery with a peak velocity of 76/16 cm/sec and heterogeneous plaque. 2. There is non-occluding plaque in the external carotid artery. 3. There is non-occluding plaque in the common carotid artery. 4. The vertebral artery flow is antegrade and normal. 5. The subclavian artery is within normal limits where visualized. Conclusions Summary Carotid duplex scanning and color flow imaging were performed bilaterally. The arteries were adequately visualized. The bilateral internal carotid arteries had <50% hemodynamically insignificant stenosis (approximately 18% by 2-D measurement on the right, approximately 15% by 2-D measurement on the left) with heterogeneous plaque. The vertebral artery flow was antegrade and normal bilaterally. Signature Velocities are measured in cm/s ; Diameters are measured in cm Carotid Right Measurements + +----+----+-----+ + + + !Location !PSV !EDV !Angle!%Stenosis 2D!%Stenosis Doppler!Tortuosity ! + +----+----+-----+ + + + !Prox CCA !75 !11.7!60 ! ! ! ! + +----+----+-----+ + + + !Dist CCA !87.4!14.7!60 ! ! ! ! + +----+----+-----+ + + + !Prox ICA !81.5!12.3!60 !18 !<50% ! ! + +----+----+-----+ + + + !Dist ICA !64.5!20.5!60 ! ! ! ! + +----+----+-----+ + + + !Prox ECA !90.9!12.9!60 ! ! ! ! + +----+----+-----+ + + + !Vertebral !30.5!5 !60 ! ! ! ! + +----+----+-----+ + + + !Prox Subclavian!106 !0 !60 ! ! ! ! + +----+----+-----+ + + + - There is antegrade vertebral flow noted on the right side. - Additional Measurements:ICAPSV/CCAPSV 0.93.ICAEDV/CCAEDV 1.75. Carotid Left Measurements + +----+----+-----+ + + + !Location !PSV !EDV !Angle!%Stenosis 2D!%Stenosis Doppler!Tortuosity ! + +----+----+-----+ + + + !Prox CCA !97.4!19.6!60 ! ! ! ! + +----+----+-----+ + + + !Dist CCA !103 !17.3!60 ! ! ! ! + +----+----+-----+ + + + !Prox ICA !75 !18.8!60 !15 !<50% ! ! + +----+----+-----+ + + + !Dist ICA !76.2!16.4!60 ! ! ! ! + +----+----+-----+ + + + !Prox ECA !90.4!7.07!60 ! ! ! ! + +----+----+-----+ + + + !Vertebral !52.8!12.9!60 ! ! ! ! + +----+----+-----+ + + + !Prox Subclavian!114 !0 !60 ! ! ! ! + +----+----+-----+ + + + - There is antegrade vertebral flow noted on the left side. - Additional Measurements:ICAPSV/CCAPSV 0.74.ICAEDV/CCAEDV 0.96. * Type and screen, automated (11/09/2017 9:33 PM) Component Value Ref Range ABO/RH AUTOMATED (BEAKER) O NEGATIVE Ab Scrn NEGATIVE Specimen Performing Laboratory Blood [facility] [address] [facility] [address] * TSH (11/09/2017 9:32 PM) Component Value Ref Range TSH 0.78 0.35 - 4.94 uIU/mL Specimen Performing Laboratory Blood [address] [address] * B-type natriuretic peptide (11/09/2017 9:32 PM) Component Value Ref Range BNP 137 (H) 0 - 100 pg/mL Specimen Performing Laboratory Blood [address] [address] * Hemoglobin A1c (11/09/2017 9:32 PM) Component Value Ref Range Hemoglobin A1C 6.7 (H) 4.3 - 6.1 % Specimen Performing Laboratory Blood [facility] [address] [place] [address] * Lipid panel (11/09/2017 9:32 PM) Component Value Ref Range Triglycerides 58Comment: Specimen slightly hemolyzed mg/dL Cholesterol 126Comment: Specimen slightly hemolyzed mg/dL HDL 43 mg/dL LDL Calculated 71 mg/dL Specimen Performing Laboratory Blood [address] [address] Narrative Triglyceride Reference Range: Low Risk <150 [id number] High Risk 200-499 Very High Risk>=500 Cholesterol Reference Range: Low Risk <200 [id number] High Risk>240 HDL Cholesterol Reference Range: Low Risk >=60 High Risk <40 LDL Cholesterol Reference Range: Optimal<100 Near [id number] [id number] [id number] Very High >=190 * Comprehensive metabolic panel (11/09/2017 9:32 PM) Component Value Ref Range Protein, Total 7.5Comment: Specimen slightly hemolyzed 6.0 - 8.3 gm/dL Albumin 4.1Comment: Specimen slightly hemolyzed 3.5 - 5.0 g/dL Alkaline Phosphatase 47 40 - 150 U/L Total Bilirubin 1.2Comment: Specimen slightly hemolyzed 0.2 - 1.2 mg/dL Sodium 137 136 - 145 meq/L Potassium 4.3Comment: Specimen slightly hemolyzed 3.5 - 5.1 meq/L Chloride 105 98 - 107 meq/L CO2 22 22 - 29 meq/L BUN 10 7 - 21 mg/dL Creatinine 1.08Comment: Specimen slightly hemolyzed 0.57 - 1.25 mg/dL Glucose 191 (H) 70 - 105 mg/dL Calcium 9.3 8.4 - 10.2 mg/dL AST 61 (H)Comment: Specimen slightly hemolyzed 5 - 34 U/L ALT 24Comment: Specimen slightly hemolyzed 6 - 55 U/L EGFR 68Comment: INSUFFICIENT CLINICAL DATA TO CALCULATE mL/min/1.73 sq m ESTIMATED GFR. Specimen Performing Laboratory Blood [facility] [address] [address] after 11/17/2016
== END 2017-11-09 13:56 | disposition short-term general hospital (02) ==
LOC: CATH LAB 13:26 → EDSTATUS 15:25 → CATH LAB 18:57 → ERHOLD 19:01 → UNDOADMIN 19:01 → CATH LAB 11-09 12:47 → ER 11-09 12:48 → CATH LAB 11-09 13:26
PROVIDERS: ATTEND Emergency Medicine
DX: I21.4 Non-ST elevation (NSTEMI) myocardial infarction (principal); I25.10 Atherosclerotic heart disease of native coronary artery without angina pectoris; E78.5 Hyperlipidemia, unspecified; I11.0 Hypertensive heart disease with heart failure; I50.41 Acute combined systolic (congestive) and diastolic (congestive) heart failure; E11.9 Type 2 diabetes mellitus without complications; Z88.6 Allergy status to analgesic agent; Z91.041 Radiographic dye allergy status; Z79.84 Long term (current) use of oral hypoglycemic drugs
CPT/HCPCS: 36415 ×2; 71045; 80053 ×2; 80061; 81001; 82550 ×2; 82553 ×2; 83880; 84484 ×2; 85025 ×2; 85610 ×2; 85730 ×2; 87086; 93005 ×2; 93306; 93458; 99284; J1200; J1644 ×2; J1885; J2001; J2250; J2930; J7030; Q9967

== ENCOUNTER → 2022-10-04 | Outpatient (CLI) | payer MEDICARE ==
[~2022-10-04] MED LIST changes: +CRESTOR10 MG; +ONGLYZA2.5 MG; +TERAZOSIN HCL5 MG PO
== END ==
LOC: MRI 10:37
PROVIDERS: ATTEND Family Medicine
DX: M23.303 Other meniscus derangements, unspecified medial meniscus, right knee (principal)